=== PATIENT | female | born 1970 | race African-American/Black ===

== ENCOUNTER 2025-04-04 15:27 | Outpatient (CLI) | payer OTHER, SELFPAY ==
--- OUTSIDE RECORDS SUMMARY | 2016-02-02 05:30 | XMS_ITS | Continuity of Care Document ---
Author Organization [facility] Address [address] [place] [address] Phone Care Team Providers Care Kindergartners Helper Name Role Phone Nacho Colindres MD Unavailable Unavailable Allergies, Adverse Reactions, Alerts Substance Reaction Status Criticality No Known Allergies Active No Inform ation Medications Medication Instructions Dosage Effective Dates (start - stop) Status Comments ALEVE (unknown strength) Not Available - Active Procedures Procedure Date RADEX SPI LUMBOSAC 2/3 VIEWS DISABILITY EXAMINATION Advance Directives Directive Yes / No Effective Date File Name No Information Encounters Encounter Description Practice Location Reason(s) For Visit Diagnoses Date Provider Providers Copied on Encounter DISABILITY EXAMINATION [facility] , [address], [place], [address], [place] tel:[phone] [facility] Vazquez I fell and hurt my back (chief complaint) Body mass index (BMI) 29.0-29.9, adultLow back pain Jens Griffith. [address] [place], [place], [id number]. tel:[phone] Family History Family Member Type Diagnosis Age At Onset Mother Problem (finding) hypertension Mother Problem (finding) hypercholester olemia in first degree relative Father Problem (finding) hypertension Sister Problem (finding) renal stone Brother Problem (finding) hypertension Payers Payer name Insurance type Covered democrat ID Authoriza tion(s) No Information Social History Type Description Quantity Date Captured Comments Alcohol Use Details No Caffeine Use Details Unknown Tobacco Use Status Never smoked tobacco 2015 Smoking Status Never smoker Non-Smoking Tobacco Use Details : No Details Available : No Details Available Sex Female Vital Signs Date / Time: Height Weight BMI Pulse Rate Blood Pressure Temperature Respiratory Rate Body Surface Area Head Circumference Head Circ. Percentile Wt./Sukhjinder. Percentile BMI percentile Pulse Ox Inhaled Ox 10:28 AM 61.00 in 71.214 kg (157.00 lbs) 29.6 6 kg/m eter (2) 122/84 mm[Hg] Chief Complaint And Reason For Visit From encounter dated '02/02/2016 10:30'. I fell and hurt my back (chief complaint) Reason For Referral Reason For Referral No Information Plan Of Treatment Date Type Action Status Referral Ordered: RADEX SPI LUMBOSAC 2/3 VIEWS ordered History Of Present Illness Encounter Date Complaint History Of Prese nt Illness I fell and hurt my back Functional Status Date Functional Assessmen t No Information Instructions Date Instruction Additional Infor mation No Information Assessments Type Assessment Date assessment Body mass index (BMI) 29.0-29.9, adult assessment Low back pain Patient Care Teams Name Effective Dates (start - stop) Status Members No Information
--- NOTE | ~2025-04-04 | XR_ITS ---
EXAMINATION: XR hand LT min 3V, 04/04/2025 15:45 CDT HISTORY: osteoarthritis of first digit COMPARISON: No comparisons available. Findings: No acute fracture or malalignment. Moderate degenerative changes of the first metacarpal carpal joint, no erosions are identified Soft tissues unremarkable. Impression: No acute fracture or malalignment. Reviewed, dictated and finalized at location P. Impression: No acute fracture or malalignment.
--- OUTSIDE RECORDS SUMMARY | 2025-04-04 16:58 | XMS_ITS | Encounter Summary ---
Author Organization [facility] Address [address] [place] [address] Care Team Providers Care Sewing Machine Repairer Name Role Phone Li Castro MD Primary Care Provider [phone] Encounter Details Date Type Department Care Team (Late st Contact Info) Description 12/23/2017 Lab Requisition [facility] [employer] [address] [place] [id number] [facility], External Provider [address] [place] [address] Social History Tobacco Use Types Packs/Day Years Used Date Smoking Tobacco: Never Smokeless Tobacco: Never Alcohol Use Standard Drinks/Week Comments No 0 (1 standard drink = 0.6 oz pur e alcohol) Comments No Sex and Gender Information Value Date Recorded Sex Assigned at Not on file 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 Gender Identity Not on file Sexual Orientation Not on file documented as of this encounter Plan of Treatment Not on file documented as of this encounter Procedures Procedure Name Priority Date/Time Associated Diagnosis Comments HEPATITIS B SURFACE AB, QUANT Routine 12/23/2017 12:33 PM CDT VARICELLA ZOSTER IGG Routine 12/23/2017 12:33 PM CDT documented in this encounter Results * HEPATITIS B SURFACE AB, QUANT (12/23/2017 12:33 PM CDT) HEPATITIS B SURF AB,QN 355.8 mlU/mL 12/23/2017 8:52 PM CDT [facility] [employer] [facility] HEPATITIS B SURFACE AB INTERP Reactive See Interp 12/23/2017 8:52 PM CDT [facility] Blood Collection / Unknown 12/23/2017 12:33 PM CDT 12/23/2017 5:25 PM CDT Narrative [facility] - 12/23/2017 8:52 PM CDT Patient has immunity to Hepatitis B virus. This assay is used to determine immune status to Hepatitis B as greater than or equal to 10 mIU/mL as per CDC guidelines (MMWR:vol 55: RR-16, 2006). External Provider [facility] CHEMISTRY ORDERABLES Fin al Result [facility] CLIA# [id number] [address] [place] [address] * VARICELLA ZOSTER IGG (12/23/2017 12:33 PM CDT) VZV IGG Positive 12/25/2017 10:42 AM CDT [facility] Comment: Results suggest response to immunization or prior exposure to the virus. REFERENCE VALUE Vaccinated: Positive (>=1.1 AI) Unvaccinated: Negative (<=0.8 AI) VARICELLA IGG INDEX 5.0 12/25/2017 10:42 AM CDT [facility] Comment: Test Performed by: [facility] [address] [place] [address] Blood Collection / Unknown 12/23/2017 12:33 PM CDT 12/23/2017 5:25 PM CDT External Provider [facility] CHEMISTRY ORDERABLES Fin al Result [facility] documented in this encounter Visit Diagnoses Not on filedocumented in this encounter Care Teams Sewing Machine Repairer Relationship Specialty Start Date End Date Li Castro [place] [address] [address] [id number] PCP - General Family Practice 09/17/21 06/17/22 documented as of this encounter
--- OUTSIDE RECORDS SUMMARY | 2025-04-04 16:59 | XMS_ITS | Clinical Summary ---
Author Organization [facility] [employer] [place] Address [address] [place] [address] Care Team Providers Care Manager Eligibility Name Role Phone Unavailable Primary Care Provider Unavailabl e Allergies Active Allergy Reactions Criticality Noted Date Comments Flzcpjj-Rxu-Eih Reductase Inhibitors Itching Low 09/24/2017 Medications fluticasone (FLONASE) 50 mcg/spray [place], Suspension 2 7 Active montelukast (SINGULAIR) 10 mg tablet 8 Active ERGOCALCIFEROL, VITAMIN D2, (VITAMIN D ORAL) Take by mouth. Active predniSONE (DELTASONE) 10 mg tabletIndication s:Non-seasonal allergic rhinitis, unspecified trigger Take three tablets at one time daily for seven days. 30 Tablet 8 Active fluconazole (DIFLUCAN) 150 mg tabletIndication s:BV (bacterial vaginosis),Oral candidiasis Take one at start of infection. May take one additional tablet in 72 hours if needed.. 2 Tablet 1 8 Active ezetimibe (ZETIA) 10 mg tablet Take 1 Tablet (10 mg) by mouth daily. 90 Tablet 8 Active Active Problems Problem Noted Date Diagnosed Date Hyperlipidemia 09/22/2017 Vitamin D deficiency 09/22/2017 Family History Medical History Relation Name Comments Hypertension Brother No Known Problems Daughter 1 No Known Problems Daughter 2 No Known Problems Daughter 3 No Known Problems Father Cancer Maternal Grandfather Cancer Maternal Grandmother High Cholesterol Mother Hypertension Mother Cancer Paternal Grandfather No Known Problems Sister No Known Problems Son Relation Name Status Comments Brother Alive Daughter 1 Alive Daughter 2 Alive Daughter 3 Alive Father Alive Maternal Grandfather Maternal Grandmother Mother Alive Paternal Grandfather Paternal Grandmother Alive Sister Alive Son Alive Social History Tobacco Use Types Packs/Day Years Used Date Smoking Tobacco: Never Smokeless Tobacco: Never Alcohol Use Standard Drinks/Week Comments No 0 (1 standard drink = 0.6 oz pur e alcohol) Comments No Sex and Gender Information Value Date Recorded Sex Assigned at Not on file 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 Gender Identity Not on file Sexual Orientation Not on file Last Filed Vital Signs Vital Sign Reading Time Taken Comments Blood Pressure 110/70 12/24/2017 1:08 PM CDT Pulse 83 12/24/2017 1:08 PM CDT Temperature 36.4 C (97.5 F) 12/24/2017 1:08 PM CDT Respiratory Rate 16 12/24/2017 1:08 PM CDT Oxygen Saturation 98% 12/24/2017 1:08 PM CDT Inhaled Oxygen Concentration - - Weight 74.8 kg (165 lb) 12/24/2017 1:08 PM CDT Height 157.5 cm (5' 2) 12/24/2017 1:08 PM CDT Body Mass Index 30.18 12/24/2017 1:08 PM CDT Plan of Treatment Health Maintenance Due Date Last Done Comments DTAP/TDAP/TD VACCINES (1 - Tdap) 1988 HEPATITIS B VACCINES (1 of 3 - 19+ 3-dose series) 1988 HPV/Cotest (21-29) 1990 HPV/Cotest (30-65) 1999 COLORECTAL SCREENING 2014 Colorectal Cancer Screening 2014 FIT-DNA Q 3 years 2014 FIT/FOBT Q 1 year 2014 Flex Sig/CT Colonography Q 5 years 2014 BREAST CANCER SCREENING 11/07/2017 11/08/19 17 (Previously completed) ZOSTER VACCINE (1 of 2) 2019 CERVICAL CANCER SCREENING 01/08/2020 PAP SMEAR 01/08/2020 01/07/2017 (Prev iously completed) INFLUENZA VACCINE (#1) 2025
--- OUTSIDE RECORDS SUMMARY | 2025-04-04 16:59 | XMS_ITS | Clinical Summary ---
Author Organization [facility] Address [address] [place] [address] Care Team Providers Care Professor Of Genetics Name Role Phone Keisha Durant MD Primary Care Provider [phone] Source Comments [facility],non-owned Affiliates and Associated Physician Practices is amultiple site organization consisting of ambulatory clinics and hospital sitesin [place], [place], [place] and [place]. This disclosure is being madepursuant to the Care Everywhere program and may not contain all information available regarding this patient. Last updated 18.[facility] Allergies Active Allergy Reactions Criticality Noted Date Comments Hmg-Coa-R Inhibitors Itching Low 09/24/2017 Sulfamethoxazole W-Trimethoprim Unknown 02/2014 Medications * Be aware that medications may not be up to date on this document. Alwaysverify current medications with the patient. atorvastatin (Lipitor) 40 MG tablet Take 1 (one) tablet by mouth once daily 08/11/2023 Active cetirizine (ZyrTEC) 10 MG tablet Take 1 (one) tablet by mouth once daily 07/06/2023 Active lisinopril-hydr oCHLOROthiazide (Prinzide; Zestoretic) 10-12.5 MG tablet Take 1 (one) tablet by mouth once daily 08/11/2023 Active metoprolol tartrate IR (Lopressor) 25 MG tablet Take 1 (one) tablet by mouth 2 times daily 02/20/2023 Active meloxicam (Mobic) 7.5 MG tablet Take 1 (one) tablet by mouth 2 times daily 08/11/2023 Active omeprazole (PriLOSEC) 20 MG capsule Take 1 (one) capsule by mouth 2 times daily 08/09/2023 Active sucralfate (Carafate) 1 GM tablet Take 1 (one) tablet by mouth 4 times daily 07/10/2023 Active estradiol (Vagifem) 10 MCG vaginal tablet Insert 1 (one) tablet into the vagina every Friday & 8 tablet 11 08/21/2023 Active Family History Medical History Relation Name Comments Diabetes; unknown type Maternal Grandfather Diabetes; unknown type Maternal Grandmother High Cholesterol Mother Hypertension Mother Relation Name Status Comments Maternal Grandfather Maternal Grandmother Mother Social History Tobacco Use Types Packs/Day Years Used Date Smoking Tobacco: Never Smokeless Tobacco: Never Tobacco Cessation:Counseling Given: Not Answered Alcohol Use Standard Drinks/Week Comments Never 0 (1 standard drink = 0.6 oz pur e alcohol) Comments No Sex and Gender Information Value Date Recorded Sex Assigned at Not on file 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 Gender Identity Not on file Sexual Orientation Not on file Last Filed Vital Signs Vital Sign Reading Time Taken Comments Blood Pressure 130/84 08/20/2023 10:19 AM CDT Pulse - - Temperature - - Respiratory Rate - - Oxygen Saturation - - Inhaled Oxygen Concentration - - Weight 73.9 kg (163 lb) 08/20/2023 10:19 AM CDT Height 154.9 cm (5' 1) 08/20/2023 10:19 AM CDT Body Mass Index 30.8 08/20/2023 10:19 AM CDT Plan of Treatment Health Maintenance Due Date Last Done Comments COLOGUARD (AGES 45-75) - COL ON CA SCREENING 1969 COLON MONITORING 1969 COLONOSCOPY - COLON CA SCREENING 1969 CT COLONOGRAPHY - COLON CA SCREENING 1969 Colorectal Cancer Screening 1969 FIT - COLON CA SCREENING 1969 FLEX SIG - COLON CA SCREENING 1969 HIV SCREENING 1984 HEPATITIS C SCREENING 07/03/1987 DTAP/TDAP/TD VACCINES (1 - Tdap) 1988 HEPATITIS B VACCINE (1 of 3 - 19+ 3-dose series) 1988 PNEUMOCOCCAL VACCINE 50+ (1 of 1 - PCV) 2019 ZOSTER VACCINE (1 of 2) 2019 MAMMOGRAM 08/24/2020 08/24/2018 SCREENING FOR DIABETES 08/20/2023 DEPRESSION SCREENING 06/09/2024 COVID-19 VACCINE (2024-2 6 season) 2025 04/27/2021, 10/20/2020, 06/30/2020 INFLUENZA VACCINE (#1) 2025 2, 02/07/2021 HIB VACCINE Aged Out No longer eligi ble based on patient's age to complete this topic HPV VACCINE Aged Out No longer eligi ble based on patient's age to complete this topic MENINGOCOCCAL (Group B) VACCINE SHARED DECISION-MAKING Aged Out No longer eligible based on patient's age to complete this topic MENINGOCOCCAL GROUPS A/C/Y/W VACCINE Aged Out No longer eligible b ased on patient's age to complete this topic Insurance MEDICAID - [place] Care Teams Professor Of Genetics Relationship Specialty Start Date End Date Keisha Durant MD [address] [place] [id number] PCP - General Internal Medicine 08/20/23
--- OUTSIDE RECORDS SUMMARY | 2025-04-04 16:59 | XMS_ITS | Data Portability ---
Author Organization [facility], [facility] Address [address] [place] [address] Care Team Providers Care Office Associate Name Role Phone SYLVIA MENARD Primary Care Provider [facility] Fingerprinter Assessment No assessment recorded. Plan of Treatment Reminders Order Date Submit Date Provider Last Modified By Organization Details Last Modified Time Details Appointments None recorded. Lab urinalysis, dipstick 2024 025 [facility] [place], [address] [place], [address], 5 16:40:06 culture, urine 2024 025 DONIPHAN [facility], [address] [facility], [place], [address], 5 00:37:25 rapid flu (A+B) 2024 025 [facility] [place], [address] [place], [address], 5 16:39:20 SARS CoV 2 (COVID-19) Ag, QL, IA, upper respiratory specimen 2024 025 [facility], [address] [place], [address], 16:39:32 Referral None recorded. Procedures None recorded. Surgeries None recorded. Imaging US, breast, unilateral - quarter size lump noted 9 o'clock, tender, non-moveabl e. 2024 025 [facility] [address] [place], [address], 5 09:40:03 MAMMO, diagnostic, digital, unilateral - quarter size lump noted 9 o'clock, tender, non-moveabl e. 2024 025 [facility] ([facility]), [address] [place], [address], 5 09:39:49 Medication Orders nitrofurant oin monohydrate /macrocryst als 100 mg capsule 2024 [facility] [address], [address], 05:01:09 Zithromax Z-Cory 250 mg tablet 2024 [facility] [address], [address], 18:36:34 estradiol 0.05 mg/24 hr semiweekly transdermal patch 2024 [facility] [address], [address], 5 13:44:23 estradiol 10 mcg vaginal tablet 2024 025 [facility] [address], [address], 13:44:23 Patient TargetsNo targets recorded. Patient InstructionsNo instructions recorded. Reason for Referral None Reported. Results Created Date Observation Date Name Description Value Unit Range Abnormal Flag Note LastModifiedBy Organization Detail LastModifiedTime 11/04/19 25 11/05/2024 SURES WAB(R ) ADVAN DREW VAGIN ITIS PLUS, TMA sureswab(R) adv bacterial vaginosis (bv), tma NEGATI VE negati ve normal Not Available [address], [address], 11/05/2024 20:12:56 11/04/19 25 11/05/2024 SURES WAB(R ) ADVAN DREW VAGIN ITIS PLUS, TMA kassie species NOT DETECT ED not detect ed normal Not Available [address], [address], 11/05/2024 20:12:56 11/04/19 25 11/05/2024 SURES WAB(R ) ADVAN DREW VAGIN ITIS PLUS, TMA kassie glabrata NOT DETECT ED not detect ed normal [place] da speci es C. albic ans, C. tropi calis , C. parap tor is, and/o r C. dubli niens is can be detec doron, but not diffe renti ated, in the [place] da spp. resul t. Not Available [address], [address], 11/05/2024 20:12:56 11/04/19 25 11/05/2024 SURES WAB(R ) ADVAN DREW VAGIN ITIS PLUS, TMA trichomonas vaginalis (TV), tma NOT DETECT ED not detect ed normal Not Available [address], [address], 11/05/2024 20:12:56 11/04/19 25 11/05/2024 SURES WAB(R ) ADVAN DREW VAGIN ITIS PLUS, TMA chlamydia trachomatis RNA, tma, urogenital NOT DETECT ED not detect ed normal Not Available [facility] [address], [address], 11/05/2024 20:12:56 11/04/19 25 11/05/2024 SURES WAKavitha(R ) ADVAN DREW VAGIN ITIS PLUS, TMA neisseria gonorrhoeae RNA, tma, urogenital NOT DETECT ED not detect ed normal For addit ional infor rohan gr refer to https ://ed ucati on.qu estBarnacle. com/f aq/FA Q154 (This link is being provi ded for infor daniella alarcon/ alfredo rosado purpo ses only. ) Not Available [facility] [address] [place], [address], 11/05/2024 20:12:56 11/04/19 25 11/05/2024 CULTU RE, URINE , ROUTI NE culture, urine, routine SEE NOTE CULTU RE, URINE , ROUTI NE Micro Numbe r: [id number] Test Statu s: Final Speci men Sourc e: Urine Speci men Quali ty: Adequ ate Resul t: No Growt h Not Available [facility] [address] [place], [address], 11/05/2024 20:12:56 11/04/19 25 11/03/2024 urina lysis , dipst ick Leukocytes Negati ve Not Available [facility] [address], [address], 11/03/2024 18:11:09 11/04/19 25 11/03/2024 urina lysis , dipst ick Nitrite negati ve Not Available [facility] [address], [address], 11/03/2024 18:11:09 11/04/19 25 11/03/2024 urina lysis , dipst ick Urobilinogen .2 Not Available [facility] [address], [address], 11/03/2024 18:11:09 11/04/1911/03/2024 urina lysis , dipst ick Protein 100 Not Available [address], [place], [address], 11/03/2024 18:11:09 11/04/1911/03/2024 urina lysis , dipst ick pH 7.0 Not Available [address], [place], [address], 11/03/2024 18:11:09 11/04/1911/03/2024 urina lysis , dipst ick Blood Negati ve Not Available [address], [place], [address], 11/03/2024 18:11:09 11/04/1911/03/2024 urina lysis , dipst ick Specific [place] 1.030 Not Available [address], [place], [address], 11/03/2024 18:11:09 11/04/1911/03/2024 urina lysis , dipst ick Ketone Small Not Available [address], [place], [address], 11/03/2024 18:11:09 11/04/1911/03/2024 urina lysis , dipst ick Bilirubin Negati ve Not Available [address], [place], [address], 11/03/2024 18:11:09 11/04/1911/03/2024 urina lysis , dipst ick Glucose Negati ve Not Available [facility] [address], [place], [address], 11/03/2024 18:11:09 11/04/19 25 11/03/2024 urina lysis , dipst ick Appearance Slight ly Cloudy Not Available [facility] [address], [place], [address], 11/03/2024 18:11:09 11/04/19 25 11/03/2024 urina lysis , dipst ick Color Dark Yellow Not Available [facility] [address], [place], [address], 11/03/2024 18:11:09 11/27/19 25 11/27/2024 SURES WAB(R ) ADVAN DREW VAGIN ITIS, TMA sureswab(R) adv bacterial vaginosis (bv), tma NEGATI VE negati ve normal Not Available [address] [address] [place], [address], 11/27/2024 12:56:06 11/27/19 25 11/27/2024 SURES WAB(R ) ADVAN DREW VAGIN ITIS, TMA kassie species NOT DETECT ED not detect ed normal Not Available [address] [address] [place], [address], 11/27/2024 12:56:06 11/27/19 25 11/27/2024 SURES WAB(R ) ADVAN DREW VAGIN ITIS, TMA kassie glabrata NOT DETECT ED not detect ed normal [place] da speci es C. albic ans, C. tropi calis , C. parap tor is, and/o r C. dubli niens is can be detec doron, but not diffe renti ated, in the [place] da spp. resul t. Not Available [facility] [address] [address] [place], [address], 11/27/2024 12:56:06 11/27/19 25 11/27/2024 SURES WAB(R ) ADVAN DREW VAGIN ITIS, TMA trichomonas vaginalis (TV), tma NOT DETECT ED not detect ed normal Not Available [facility] [address] [place], [address], 11/27/2024 12:56:06 01/19/20 25 01/19/2025 CULTU RE, URINE , ROUTI NE culture, urine, routine SEE NOTE CULTU RE, URINE , ROUTI NE Micro Numbe r: [id number] Test Statu s: Final Speci men Sourc e: Urine Speci men Quali ty: Adequ ate Resul t: No Growt h Not Available [facility] [address] [place], [address], 01/20/2025 00:37:25 02/02/20 25 02/01/2025 urina lysis , dipst ick Leukocytes Trace Not Available [facility] [address], [address], 01/18/2025 18:23:08 02/02/20 25 02/01/2025 urina lysis , dipst ick Nitrite negati ve Not Available [facility] [address], [address], 01/18/2025 18:23:08 02/02/20 25 02/01/2025 urina lysis , dipst ick Urobilinogen .2 Not Available [facility] [address], [address], 01/18/2025 18:23:08 02/02/20 25 02/01/2025 urina lysis , dipst ick Protein Trace Not Available [facility] [address], [address], 01/18/2025 18:23:08 02/02/20 25 02/01/2025 urina lysis , dipst ick pH 6.0 Not Available [address], [place], [address], 01/18/2025 18:23:08 02/02/20 25 02/01/2025 urina lysis , dipst ick Blood Negati ve Not Available [address], [place], [address], 01/18/2025 18:23:08 02/02/20 25 02/01/2025 urina lysis , dipst ick Specific [place] 1.025 Not Available [address], [place], [address], 01/18/2025 18:23:08 02/02/20 25 02/01/2025 urina lysis , dipst ick Ketone Negati ve Not Available [address], [place], [address], 01/18/2025 18:23:08 02/02/20 25 02/01/2025 urina lysis , dipst ick Bilirubin Negati ve Not Available [address], [place], [address], 01/18/2025 18:23:08 02/02/20 25 02/01/2025 urina lysis , dipst ick Glucose Negati ve Not Available [address], [place], [address], 01/18/2025 18:23:08 02/02/20 25 02/01/2025 urina lysis , dipst ick Appearance Cloudy Not Available [facility] [address], [place], [address], 01/18/2025 18:23:08 02/02/20 25 02/01/2025 urina lysis , dipst ick Color Yellow Not Available [facility] [place] [address] [place] [address], [place], [address], 01/18/2025 18:23:08 02/02/20 25 02/01/2025 SARS CoV 2 (COVI D-19) Ag, QL, IA, upper respi rator y speci men Covid Rapid negati ve Not Available [facility] [address], [place], [address], 01/18/2025 18:20:57 02/02/20 25 02/01/2025 rapid flu (A+B) Flu negati ve Not Available [facility] [address], [place], [address], 01/18/2025 18:20:48 12/24/19 25 12/21/2024 US, silvana t, unila teral No observ ation record ed. [email or web address] [facility] ([facility]) [address] [facility], [place], [address], 12/24/2024 14:09:33 12/24/19 25 12/17/2024 MAMMO , diagn ostic , digit al, unila teral No observ ation record ed. [email or web address] [facility] ([facility]) [address] [facility] [place], [address], 12/24/2024 14:09:33 Result Notes None recorded. Problems Name Problem SNOMED Code Status Onset Date Resolution Date Notes Provider Name and Address Organization Details Recorded Time Total hysterec veronica Active Shana lamas, [facility] 3 18:39:22 Malaise and fatigue 735469448 Completed 201201/01/2019 Fatigue; Location : None Progress : Stable Added By: Omar Alaniz Add to Current Problems : NO ProblemS tatus: Resolve Fatigue; Progress : Stable Added By: Gabby Montanez Add to Current Problems : NO ProblemS tatus: Resolve Not Available [facility] 2 21:20:15 Vaginiti s and vulvovag initis Completed 201312/31/2013 Vagintiu s Unspecif ied; Location : None Progress : Stable Added By: Lissy Garcia Add to Current Problems : NO ProblemS tatus: Resolve Not Available [facility] 2 21:20:18 Candidal vulvovag initis [id number] Completed 201312/31/2013 Vaginal yeast infectio n; Location : None Progress : Stable Added By: Nakia Samano Add to Current Problems : NO ProblemS tatus: Resolve Yeast vaginiti s; Location : None Progress : Stable Added By: Charmaine Adkins Add to Current Problems : NO ProblemS tatus: Resolve; Start Date : 12/29/19 13 Not Available [facility] 2 21:20:18 Abscess of vulva 90777020 Completed 201312/31/2013 Abscess of vulva; Progress : Stable Added By: Chikis Garner Add to Current Problems : NO ProblemS tatus: Resolve Not Available [facility] 2 21:20:16 Abdomina l pain 93016144 Completed 201306/12/2014 Abdomina l pain, unspecif ied; Location : None Progress : Stable Added By: Lissy Garcia Add to Current Problems : NO ProblemS tatus: Resolve Not Available [facility] 2 21:20:17 Lymphade nopathy 04730440 Completed 201306/12/2014 Enlarged lymph nodes; Progress : Stable Added By: Lissy Garcia Add to Current Problems : NO ProblemS tatus: Resolve Not Available [facility] 2 21:20:15 Vaginola bial hernia Completed 201306/26/2020 Other specifie d noninfla mmatory disorder s of vagina; Progress : Stable Added By: Omar Alaniz Add to Current Problems : NO ProblemS tatus: Resolve Vaginal Discharg e; Location : None Progress : Stable Added By: Saniya Singer Add to Current Problems : YES ProblemS tatus: Current Not Available [facility] 2 21:20:18 Finding of general energy 940778344 Completed 201412/21/2019 Fatigue; Location : None Progress : Stable Added By: Gabby Montanez Add to Current Problems : YES ProblemS tatus: Current Other fatigue; Progress : Stable Added By: Gabby Montanez Add to Current Problems : NO ProblemS tatus: Resolve Not Available [facility] 2 21:20:18 Urinary incontin ence 620523621 Completed 201405/19/2015 Incontin ence of urine, other; Location : None Progress : Stable Added By: Ngozi Turner Add to Current Problems : YES ProblemS tatus: Resolve Not Available [facility] 2 21:20:19 Micturit ion finding Completed 201405/19/2015 Other specifie d urinary incontin ence; Progress : Stable Added By: Ngozi Turner Add to Current Problems : NO ProblemS tatus: Resolve Not Available [facility] 2 21:20:16 Breast neoplasm screenin g status 099411303 Completed 201405/19/2015 Encounte r for other screenin g for malignan t neoplasm of breast; Progress : Stable Added By: Abi Kumar Add to Current Problems : NO ProblemS tatus: Resolve Not Available [facility] 2 21:20:19 Leukorrh ea 153842906 Completed 201601/28/2017 Vaginal Discharg e; Progress : Stable Added By: Melinda Mahoney Add to Current Problems : NO ProblemS tatus: Resolve Vaginal Discharg e; Location : None Progress : Stable Added By: Frida Richter Add to Current Problems : YES ProblemS tatus: Resolve; Start Date : 09/29/19 14 Vagin al Discharg e; Location : None Progress : Stable Added By: Kade, Shania Add to Current Problems : NO ProblemS tatus: Resolve; Start Date : 12/29/19 13 Not Available [facility] 2 21:20:15 Breast neoplasm screenin g NOS Completed 201601/28/2017 Screenin g mammogra m - other; Location : None Severity : Moderate Progress : Stable Added By: Venita Andrews Add to Current Problems : YES ProblemS tatus: Resolve Screenin g for breast cancer, unspecif ied; Location : None Severity : Moderate Progress : Stable Added By: Abi Kumar Add to Current Problems : YES ProblemS tatus: Resolve; Start Date : 03/20/20 15 Nithin coello mammogra m - other; Severity : Moderate Progress : Stable Added By: Lissy Garcia Add to Current Problems : NO ProblemS tatus: Resolve; Start Date : 03/02/20 13 Not Available [facility] 1 19:55:20 Female urinary stress incontin ence 70582151 Completed 201601/01/2019 Stress incontin ence; Location : None Progress : Stable Added By: Melinda Mahoney Add to Current Problems : YES ProblemS tatus: Current Stress incontin ence; Progress : Stable Added By: Melinda Mahoney Add to Current Problems : NO ProblemS tatus: Resolve Not Available [facility] 2 21:20:17 Screenin g mammogra phy Completed 201601/28/2017 Screenin g mammogra m - other; Location : None Progress : Stable Added By: Lissy Garcia Add to Current Problems : NO ProblemS tatus: Resolve; Start Date : 04/13/20 14 Nithin coello mammogra m - other; Location : None Progress : Stable Added By: Lissy Garcia Add to Current Problems : NO ProblemS tatus: Resolve; Start Date : 03/02/20 13 Encou nter for screenin g mammogra m for malignan t neoplasm of breast; Progress : Stable Added By: Venita Andrews Add to Current Problems : NO ProblemS tatus: Resolve Screenin g mammogra m - other; Location : None Progress : Stable Added By: Venita Andrews Add to Current Problems : YES ProblemS tatus: Resolve Not Available [facility] 2 21:20:19 History of recurren t cystitis 355089745 Completed 201708/29/2021 History of recurren t UTI's; Location : None Progress : Stable Added By: Saniya Singer Add to Current Problems : YES ProblemS tatus: Current Idania lamas, [facility] 2 14:31:50 Cyst of ovary 32446674 Completed 201712/21/2019 Other ovarian cyst; Progress : Stable Added By: Mary Kate Lundberg Add to Current Problems : NO ProblemS tatus: Resolve Other ovarian cyst; Location : None Progress : Stable Added By: Mary Kate Lundberg Add to Current Problems : YES ProblemS tatus: Current Unspecif ied ovarian cysts; Progress : Stable Added By: Mary Kate Lundberg Add to Current Problems : NO ProblemS tatus: Resolve Other ovarian cysts; Progress : Stable Added By: Mary Kate Lundberg Add to Current Problems : NO ProblemS tatus: Resolve Not Available [facility] 2 21:20:14 Kassie infectio n of genital region Completed 201712/21/2019 Candidia sis of vulva and vagina; Progress : Stable Added By: Omar Alaniz Add to Current Problems : NO ProblemS tatus: Resolve Not Available [facility] 2 21:20:15 Candidia sis of vagina 12706510 Completed 201704/11/2018 Candidia sis, of vulva and vagina; Location : None Progress : Stable Added By: Omar Alaniz Add to Current Problems : YES ProblemS tatus: Resolve Not Available [facility] 2 21:20:17 Vulvovag initis 23881286 Completed 201712/21/2019 Vagintiu s Unspecif ied; Location : None Progress : Stable Added By: Lissy Garcia Add to Current Problems : YES ProblemS tatus: Resolve; Start Date : 04/13/20 14 Vagin tius Unspecif ied; Location : None Progress : Stable Added By: Saniya Singer Add to Current Problems : YES ProblemS tatus: Current Other specifie d inflamma tion of vagina and vulva; Progress : Stable Added By: Saniya Singer Add to Current Problems : NO ProblemS tatus: Resolve Not Available [facility] 2 21:20:16 Syphilis test finding 319168819 Completed 201708/29/2021 Encounte r for screenin g for infectio ns with a predomin antly sexual mode of transmis enrico; Severity : Moderate Progress : Stable Added By: Bernie Aranda Add to Current Problems : YES ProblemS tatus: Current Idania lamas, [facility] 2 14:31:56 Venereal disease screenin g Completed 201705/17/2018 Screenin g for STDs; Location : None Progress : Stable Added By: Allie Tatum Add to Current Problems : YES ProblemS tatus: Resolve Not Available [facility] 2 21:20:14 Acute vaginiti s 73952457 Completed 201808/29/2021 Acute vaginiti s; Severity : Moderate Progress : Stable Added By: Lynne Corrales Add to Current Problems : YES ProblemS tatus: Current Idania lamas, [facility] 2 14:31:48 Pelvic and perineal pain 586662351 Completed 201808/29/2021 Pelvic and perineal pain; Severity : Moderate Progress : Stable Added By: Cristóbal Sanz Add to Current Problems : YES ProblemS tatus: Current Idania lamas, [facility] 2 14:31:53 Screenin g for malignan t neoplasm of cervix Completed 201812/21/2019 Encounte r for screenin g for malignan t neoplasm of cervix; Progress : Stable Added By: Nubia Worrell Add to Current Problems : NO ProblemS tatus: Resolve Not Available [facility] 2 21:20:15 Sampling of vagina for Papanico laou smear Completed 201806/26/2020 Encounte r for gynecolo gical examinat ion (general ) (routine ) without abnormal findings ; Progress : Stable Added By: Mary Kate Lundberg Add to Current Problems : NO ProblemS tatus: Resolve Not Available [facility] 2 21:20:[address] Concept Completed 201812/21/2019 Encounte r for screenin g for malignan t neoplasm of vagina; Progress : Stable Added By: Nubia Worrell Add to Current Problems : NO ProblemS tatus: Resolve Not Available [facility] 2 21:20:14 Menopaus e present 160092987 Completed 201808/29/2021 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; Severity : Moderate Progress : Stable Added By: Randi Chacon Add to Current Problems : YES ProblemS tatus: Current Idania lamas, [facility] 2 14:31:52 Dysuria 41663435 Completed 201812/21/2019 Dysuria; Progress : Stable Added By: Idania Charles Add to Current Problems : NO ProblemS tatus: Resolve Not Available [facility] 2 21:20:18 Disorder due to infectio n Completed 201912/21/2019 Other sites of candidia sis; Progress : Stable Added By: Faith Funez i Add to Current Problems : NO ProblemS tatus: Resolve Not Available [facility] 2 21:20:13 Genuine stress incontin ence 60495886 Completed 201906/26/2020 Stress incontin ence (female) (male); Progress : Stable Added By: Melinda Mahoney Add to Current Problems : NO ProblemS tatus: Resolve Not Available [facility] 2 21:20:15 Menopaus al symptom 32928260 Active 2022 [facility] [address] [place], [address] , [facility] 3 19:38:08 Increase d frequenc y of urinatio n 894785099 Active 2022 [facility] [address] [place], [address] , [facility] 3 12:17:52 Problem Notes None recorded. Procedures Surgical History Date Name Laterality Status Provider Name and Address Organization Details Recorded Time 11/20/19 25 perineorrhaphy completed [facility] 11/23/2024 12:08:18 08/12/19 25 Most Recent Mammogram [facility] 09/07/2024 12:52:19 07/27/19 25 perineoplasty completed [facility] 11/23/2024 12:11:41 07/27/19 25 cystoscopy completed [facility] 11/23/2024 12:12:04 06/09/19 23 Date of Last Colonoscopy completed Idania Brantley [facility] 02/20/2023 11:43:12 total hysterectomy completed Melissa Singh [facility] 01/11/2022 09:07:09 Imaging Results None recorded. Procedure Notes None recorded. Medical Equipment None Reported. Allergies Allergen ID Allergen Name Allergen Category Reaction Reaction Severity Criticality Documentation Date Start Date Code Code System Note Provider Name and Address Organization Details Recorded Time 634404 Bactrim medicatio n Not available Not available Not available 03/30/20212013 04291 9 RxNorm Sever ity: Moder ate; America Lundberg MD [address] [place] [address], [address] [place] [address] IV 5 11:45:00 868069 sulfameth oxazole / trimethop rim medicatio n Not available Not available Not available 06/28/20242013 56449 RxNorm unrec ogniz ed react ion (text : Unkno wn, code: [id number] [id number]) (from [facility]) Onel lamas, [facility] IV 5 10:41:16 505719 Product containin g 3-hydroxy -3-methyl glutaryl- coenzyme A reductase inhibitor (product) medicatio n itching Not available low 03/18/20252017 05976 009 SNOMED Not Available [facility] - External Data Service - prod 5 14:42:13 Medications Name Sig Start Date Stop Date Status Note LastModified by Organization Details LastModified Time amoxicill in 500 mg capsule TAKE ONE CAPSULE BY MOUTH EVERY 8 HOURS 03/04 completed Not Available Not Available Not Available fluconazo le 100 mg tablet TAKE 1 TABLET BY MOUTH EVERY DAY FOR 5 DAYS 09/07 completed Not Available Not Available Not Available atorvasta tin 40 mg tablet TAKE 1 TABLET BY MOUTH EVERY DAY active Not Available Not Available No t Available terconazo le 0.4 % vaginal cream 1 applicat or vaginall y twice weekly at [facility] for 6 wks, may apply small amount external ly as well; Start after completi on of oral fluconaz ole 12/02 completed Terconaz ole 0.8% Vaginal Cream RxNorm: [id number] Allow Substitu tion: True Refill Denied: No Not Available Not Available Not Available neomycin- polymyxin -hydrocor t 3.5 mg/mL-10, 000 unit/mL-1 % ear solution INSTILL 2 DROPS TO BOTH EARS 3 TIMES A DAY FOR 10 DAYS 09/23 completed Not Available Not Available Not Available nystatin 100,000 unit/mL oral suspensio n SWISH AND SPIT 5 ML BY MOUTH 3 TIMES DAILY NEEDED active Not Available Not Available No t Available prednison e 10 mg tablet TAKE 4 TABLETS ON DAYS 1-2, 3 TABLETS ON DAYS 3-4, 2 TABLETS ON DAYS 5-6 AND 1 TABLET ON DAY 7. 08/29 completed Not Available Not Available Not Available atorvasta tin 20 mg tablet TAKE 1 TABLET BY MOUTH EVERY DAY active Not Available Not Available No t Available tizanidin e 2 mg tablet TAKE ONE Tablet BY MOUTH ONCE DAILY NEEDED 06/16 completed Not Available Not Available Not Available clindamyc in HCl 300 mg capsule TAKE 1 CAPSULE BY MOUTH 3 TIMES A DAY 03/04 completed Not Available Not Available Not Available cetirizin e 10 mg tablet TAKE 1 TABLET BY MOUTH EVERY DAY NEEDED FOR ALLERGY active Not Available Not Available No t Available atorvasta tin 10 mg tablet take 1 tablet (10 mg) by oral route once daily 08/29 completed atorvast atin 10 mg oral tablet RxNorm: 884047 Allow Substitu tion: False Refill Denied: No Refill DateOccu rred: 11/16/19 Edited by: Faith Felton ) on 06/09/20 20 Stopped by: treasure reynolds(Faith Harvey ) on Not Available Not Available Not Available ibuprofen 800 mg tablet TAKE ONE TABLET BY MOUTH THREE TIMES DAILY (MAX DOSE FOUR TIMES A DAY DONT EXCEED BEYOND THAT) 03/04 completed Not Available Not Available Not Available ofloxacin 0.3 % eye drops 05/04 completed Not Available Not Available Not Available fluconazo le 150 mg tablet TAKE 1 TABLET BY MOUTH EVERY 72 HOURS active Not Available Not Available No t Available ampicilli n 500 mg capsule 1 p.o. bid for seven (7) days 07/16 completed Ampicill in 500mg Capsules RxNorm: [id number] Allow Substitu tion: True Refill Denied: No Not Available Not Available Not Available hydrocodo ne 5 mg-acetam inophen 325 mg tablet TAKE 1 TABLET BY MOUTH EVERY 4 HOURS NEEDED FOR PAIN 08/10 completed Not Available Not Available Not Available sucralfat e 1 gram tablet TAKE 1 TABLET BY MOUTH THREE TIMES A DAY active Not Available Not Available No t Available phenazopy ridine 200 mg tablet TAKE ONE Tablet BY MOUTH EVERY EIGHT HOURS FOR TWO ds 06/16 completed Not Available Not Available Not Available metronida zole 0.75 % (37.5 mg/5 gram) vaginal gel insert 1 applicat orful (37.5 mg) by vaginal route at night twice a week for 16 weeks 12/30 completed Not Available Not Available Not Available ondansetr on HCl 4 mg tablet TAKE ONE TABLET BY MOUTH THREE TIMES DAILY NEEDED 12/30 completed Not Available Not Available Not Available prednison e 20 mg tablet TAKE 1 TABLET BY MOUTH EVERY DAY FOR 5 DAYS 11/18 completed Not Available Not Available Not Available terconazo le 0.8 % vaginal cream 1 applicat or vaginall y twice weekly at HS for 6 wks, may apply small amount external ly as well; Start after completi on of oral fluconaz ole 01/01 completed Terconaz ole 0.8% Vaginal Cream RxNorm: [id number] Allow Substitu tion: True Refill Denied: No Not Available Not Available Not Available metronida zole 250 mg tablet TAKE 1 TABLET BY MOUTH THREE TIMES DAILY FOR 5 DAYS 03/04 completed Not Available Not Available Not Available Zithromax Z-Cory 250 mg tablet TAKE 2 TABLETS (500 MG) BY ORAL ROUTE ONCE DAILY FOR 1 DAY THEN 1 TABLET (250 MG) BY ORAL ROUTE ONCE DAILY FOR 4 DAYS 2024 active Not Available Not Available Not Avai lable clindamyc in HCl 150 mg capsule 01/29 completed Not Available Not Available Not Available itraconaz ole 10 mg/mL oral solution Take 200 mg every day by oral route as directed for 14 days. 03/17 completed Not Available Not Available Not Available sulindac 150 mg tablet 03/17 completed Not Available Not Available Not Available metronida zole 500 mg tablet Take 1 tablet every 12 hours by oral route for 7 days. 02/12 completed Not Available Not Available Not Available lidocaine HCl 2 % mucosal jelly Take 1 applicat ion every 12 hours by mucous route as needed for 5 days. 11/29 completed Not Available Not Available Not Available estradiol 0.05 mg/24 hr semiweekl y transderm al patch APPLY 1 PATCH TO SKIN TWICE A WEEK FOR HOT FLASHES. active Not Available Not Available No t Available ciproflox acin 500 mg tablet 05/04 completed Not Available Not Available Not Available sulfameth oxazole 800 mg-trimet hoprim 160 mg tablet TAKE ONE Tablet BY MOUTH EVERY 12 HOURS FOR 7 DAYS 06/16 completed Not Available Not Available Not Available omeprazol e 40 mg capsule,d elayed release TAKE 1 CAPSULE BY MOUTH EVERY DAY active Not Available Not Available No t Available tramadol 50 mg tablet TAKE 1 TABLET (50 MG TOTAL) BY MOUTH EVERY 6 HOURS NEEDED FOR ACUTE PAIN < 7 DAY SUPPLY 12/15 completed Not Available Not Available Not Available amoxicill in 500 mg tablet TAKE 1 TABLET BY MOUTH EVERY 8 HOURS FOR 7 DAYS 11/18 completed Not Available Not Available Not Available nystatin- triamcino lone 100,000 unit/gram -0.1 % topical ointment Apply thin film to affected area bid 10/14 completed Nystatin /Triamci nolone 100,000U /1gm/0.1 % Topical Ointment RxNorm: [id number] Allow Substitu tion: True Refill Denied: No Not Available Not Available Not Available meloxicam 7.5 mg tablet TAKE ONE TABLET BY MOUTH TWICE DAILY NEEDED FOR 90 DAYS 09/23 completed Not Available Not Available Not Available oxycodone -acetamin ophen 5 mg-325 mg tablet TAKE 1 TABLET BY MOUTH EVERY 4-6 HOURS NEEDED FOR PAIN 03/04 completed Not Available Not Available Not Available amoxicill in 875 mg tablet TAKE 1 TABLET BY MOUTH TWICE A DAY 03/04 completed Not Available Not Available Not Available famotidin e 20 mg tablet 08/29 completed Not Available Not Available Not Available triamcino lone acetonide 0.025 % topical cream Apply thin film to affected area bid 02/13 completed Triamcin olone Acetonid e 0.025% Cream RxNorm: [id number] Allow Substitu tion: True Refill Denied: No Not Available Not Available Not Available ciproflox acin 0.3 % eye drops PLACE 1 DROP INTO AFFECTED EAR TWICE DAILY FOR 10 DAYS 08/10 completed Not Available Not Available Not Available benzonata te 100 mg capsule TAKE ONE CAPSULE BY MOUTH THREE TIMES DAILY NEEDED FOR cough 09/23 completed Not Available Not Available Not Available erythromy cassandra 5 mg/gram (0.5 %) eye ointment 08/29 completed Not Available Not Available Not Available venlafaxi ne 37.5 mg tablet TAKE 1 TABLET (37.5 MG) BY MOUTH ONCE A DAY FOR ONE WEEK THEN INCREASE TO TWO PILLS DAILY 03/04 completed Not Available Not Available Not Available ferrous sulfate 325 mg (65 mg iron) tablet TAKE ONE TABLET BY MOUTH ONCE DAILY FOR 90 DAYS 11/03 completed Not Available Not Available Not Available nystatin 100,000 unit/gram topical cream apply to the affected area(s) by topical route 2 times per day x 7 days 11/15 completed nystatin 100,000 unit/gra m Topical Cream RxNorm: [id number] Allow Substitu tion: True Refill Denied: No Edited by: Faith Felton ) on 11/16/19 Stopped by: treasure reynolds(Faith Harvey ) on 11/16/19 20 Not Available Not Available Not Available prednison e 50 mg tablet 10/28 completed Not Available Not Available Not Available indometha cassandra 25 mg capsule TAKE 1 CAPSULE BY MOUTH THREE TIMES A DAY NEEDED FOR 90 DAYS 12/30 completed Not Available Not Available Not Available sertralin e 25 mg tablet TAKE 1 TABLET BY MOUTH EVERY DAY active Not Available Not Available No t Available omeprazol e 20 mg capsule,d elayed release TAKE ONE CAPSULE BY MOUTH TWICE DAILY FOR 90 DAYS 12/30 completed Not Available Not Available Not Available monteluka st 10 mg tablet TAKE 1 TABLET BY MOUTH EVERY DAY active Not Available Not Available No t Available acetamino phen 300 mg-codein e 60 mg tablet TAKE 1 TABLET BY MOUTH EVERY 4-6 HOURS NEEDED FOR PAIN 03/04 completed Not Available Not Available Not Available diclofena c sodium 50 mg tablet,de layed release TAKE 1 TABLET BY MOUTH EVERY DAY 02/20 completed Not Available Not Available Not Available ergocalci ferol (vitamin D2) 1,250 mcg (50,000 unit) capsule TAKE ONE CAPSULE BY MOUTH EVERY 15 DAYS active Not Available Not Available No t Available nystatin 100,000 unit/gram topical powder apply to the affected area(s) by topical route 2 times per day 11/29 completed nystatin 100,000 unit/gra m Topical Powder RxNorm: [id number] Allow Substitu tion: True Refill Denied: No Edited by: Tatyana Hamm ) on 11/30/19 Stopped by: Tatyana Hamm ) on 11/30/19 21 Not Available Not Available Not Available diazepam 10 mg tablet TAKE 1 TABLET BY MOUTH HALF AN HOUR BEFORE APPOINTM ENT. *MUST HAVE A CAR AUDIO INSTALLER* 03/04 completed Not Available Not Available Not Available epinephri ne 0.3 mg/0.3 mL injection , auto-inje ctor 08/29 completed Not Available Not Available Not Available lisinopri l 10 mg-hydroc hlorothia zide 12.5 mg tablet TAKE 1 TABLET BY MOUTH EVERY DAY active Not Available Not Available No t Available levofloxa cassandra 500 mg tablet TAKE ONE TABLET BY MOUTH ONCE DAILY FOR TEN DAYS 02/20 completed Not Available Not Available Not Available estradiol 0.01% (0.1 mg/gram) vaginal cream INSERT 1 GRAM VAGINALL Y TWICE A WEEK active Not Available Not Available No t Available methylpre dnisolone 4 mg tablets in a dose pack TAKE 6 TABLETS ON DAY 1 DIRECTED ON PACKAGE AND DECREASE BY 1 TAB EACH DAY FOR A TOTAL OF 6 DAYS active Not Available Not Available No t Available albuterol sulfate HFA 90 mcg/actua tion aerosol inhaler INHALE 2 PUFFS BY MOUTH 4 TIMES A DAY NEEDED 09/23 completed Not Available Not Available Not Available estradiol 0.0375 mg/24 hr semiweekl y transderm al patch APPLY 1 PATCH BY TRANSDER MAL ROUTE TWICE WEEKLY active Not Available Not Available No t Available ondansetr on 4 mg disintegr ating tablet TAKE 1 TABLET BY MOUTH EVERY 8 HOURS NEEDED FOR NAUSEA AND VOMITING active Not Available Not Available No t Available cefdinir 300 mg capsule TAKE 1 CAPSULE BY MOUTH TWICE A DAY FOR 10 DAYS 08/10 completed Not Available Not Available Not Available fluticaso ne propionat e 50 mcg/actua tion nasal spray,[facility]ley pension PLACE 1 SPRAY INTO EACH NOSTRIL TWICE DAILY 11/03 completed Not Available Not Available Not Available Diflucan 200 mg tablet take 1 tablet (200 mg) by oral route once daily after completi ng antbioti c 08/10 completed Diflucan 200 mg oral tablet RxNorm: [id number] Allow Substitu tion: True Refill Denied: No Edited by: Cydney Espinosa ) on 08/11/19 Stopped by: Cydney Espinosa ) on 08/11/19 21 Not Available Not Available Not Available dicyclomi ne 10 mg capsule TAKE 1 CAPSULE BY MOUTH TWICE A DAY FOR 3 MONTHS 09/23 completed Not Available Not Available Not Available loratadin e 10 mg tablet TAKE 1 TABLET BY MOUTH EVERY DAY active Not Available Not Available No t Available amoxicill in 875 mg-potass ium clavulana te 125 mg tablet TAKE ONE TABLET BY MOUTH TWICE A DAY FOR 5 DAYS. 03/04 completed Not Available Not Available Not Available amoxicill in 500 mg-potass ium clavulana te 125 mg tablet TAKE 1 TABLET BY MOUTH TWICE A DAY FOR 7 DAYS active Not Available Not Available No t Available tobramyci n 0.3 %-dexamet hasone 0.1 % eye drops,ansley pension INSTILL 2 DROPS IN BOTH EYES TWICE DAILY FOR 10 DAYS 12/30 completed Not Available Not Available Not Available neomycin- polymyxin -hydrocor t 3.5 mg-10,000 unit/mL-1 % ear drops,ansley p 08/29 completed Not Available Not Available Not Available azithromy cassandra 500 mg tablet take 2 tablets (1,000 mg) by oral route once 04/06 completed azithrom ycin 500 mg oral tablet RxNorm: [id number] Allow Substitu tion: True Refill Denied: No Edited by: Idania Rouse ) on 04/06/20 Stopped by: Idania Rouse ) on 04/06/20 Not Available Not Available Not Available ciproflox acin 0.3 %-dexamet hasone 0.1 % ear drops,ansley pension INSTILL 4 DROPS INTO RIGHT EAR TWICE A DAY FOR 10 DAYS active Not Available Not Available No t Available metoprolo l tartrate 25 mg tablet TAKE ONE TABLET BY MOUTH ONCE DAILY FOR 90 DAYS 12/30 completed Not Available Not Available Not Available tinidazol e 500 mg tablet take 1 tablet po BID x 5 days with food 09/28 completed tinidazo le 500 mg oral tablet RxNorm: [id number] Allow Substitu tion: True Refill Denied: No Edited by: Tali Banks ) on 09/29/19 Stopped by: Tali Banks ) on 09/29/19 21 Not Available Not Available Not Available nitrofura ntoin monohydra te/macroc rystals 100 mg capsule Take 1 capsule every 12 hours by oral route for 7 days. 02/01 completed Not Available Not Available Not Available triamcino lone acetonide Apply thin film to affected area bid 12/15 completed Triamcin olone Acetonid e 0.025% Cream RxNorm: 5499515 Allow Substitu tion: True Refill Denied: No Not Available Not Available Not Available nystatin Apply a thin film with triamcin olone cream to affected area BID 10/22 completed Nystatin 100,000U /1gm Cream RxNorm: 095138 Allow Substitu tion: True Refill Denied: No Not Available Not Available Not Available chlorhexi dine gluconate Please shower with daily 12/15 completed Chlorhex idine Gluconat e 0.12% Oral Rinse RxNorm: 558861 Allow Substitu tion: True Refill Denied: No Refill DateOccu rred: 12/16/19 14 Not Available Not Available Not Available Bactrim DS 1 PO BID X 7 days 12/15 completed Bactrim DS 160mg/80 0mg Tablet RxNorm: 452530 Allow Substitu tion: True Refill Denied: No Refill DateOccu rred: 12/16/19 14 Not Available Not Available Not Available clindamyc in HCl 1 PO BID 02/15 completed Clindamy cassandra HCl 300mg Capsules Allow Substitu tion: True Refill Denied: No Not Available Not Available Not Available Symbicort 80 mcg-4.5 mcg/actua tion HFA aerosol inhaler INHALE TWO PUFFS BY MOUTH TWICE DAILY FOR 90 DAYS 09/23 completed Not Available Not Available Not Available Vagifem 10 mcg vaginal tablet INSERT 1 TABLET VAGINALL Y TWICE A WEEK active Not Available Not Available No t Available lidocaine 5 % topical ointment APPLY 1 APPLICAT ION 4 TIMES A DAY BY TOPICAL ROUTE NEEDED FOR 10 DAYS. active Not Available Not Available No t Available Flonase Allergy Relief 12/30 completed Flonase Allergy Relief Allow Substitu tion: True Refill Denied: No Refill DateOccu rred: 03/18/20 18 Edited by: Nakia Roque) on 02/11/20 19 Stopped by: cassia pat(Nakia Olivas) on Not Available Not Available Not Available ID NOW COVID-19 Test Kit TEST DIRECTED TODAY 08/29 completed Not Available Not Available Not Available Vitals Date Recorded Body height Body mass index (BMI) Body weight Systolic And Diastolic Provider Name and Address Organization Details Last Updated DateTime 11/09/2024 157.48 cm 29.8 kg/m2 64702.27 g 114/70 mm[Hg] [facility] 11/09/2024 13:02:06 Date Recorded Body height Body mass index (BMI) Body weight Systolic And Diastolic Provider Name and Address Organization Details Last Updated DateTime 11/23/2024 157.48 cm 29.8 kg/m2 92963.56 g 112/72 mm[Hg] [facility] 11/23/2024 13:08:01 Date Recorded Body height Body mass index (BMI) Body weight Systolic And Diastolic Provider Name and Address Organization Details Last Updated DateTime 12/07/2024 157.48 cm 29.6 kg/m2 67308.96 g 120/68 mm[Hg] [facility] 12/07/2024 13:10:36 Date Recorded Body height Body mass index (BMI) Body weight Systolic And Diastolic Provider Name and Address Organization Details Last Updated DateTime 12/15/2024 157.48 cm 29.6 kg/m2 58826.96 g 116/78 mm[Hg] Guillermo Fall [facility] [employer] [facility] 12/15/2024 12:18:53 Date Recorded Body height Body mass index (BMI) Body weight Body temperature Systolic And Diastolic Provider Name and Address Organization Details Last Updated DateTime 01/18/2025 157.48 cm 30.7 kg/m2 91280.5 2 g 99.7 [degF] 120/70 mm[Hg] Albadavy Mary [facility] [employer] 18:31:12 Social History Question Answer Notes LastModified by Organizat ion Details LastModified Time Tobacco Smoking Status [place] [employer] 05/04/2021 15:06:35 Are You Blind Or Do You Have Difficulty Seeing? No Information not available 08/29/2021 Are You Deaf Or Do You Have Serious Difficulty Hearing? No Information not available 08/29/2021 What Type Of Diet Are You Following? REGULAR [email or web address] Information not available 10/28/2022 How Many Children Do You Have? 4 Information not available 05/02/2021 What Is Your Relationship Status? Single [email or web address] Information not available 05/02/2021 Are You Sexually Active? Yes [email or web address] Information not available 05/02/2021 Sex: Female Functional Status Question Answer Note LastModified by Organizat ion Details LastModified Time Do you use any illicit or recreational drugs? No Information not available 05/04/2021 Do you or have you ever used any other forms of tobacco or nicotine? No Information not available 08/29/2021 What is your level of alcohol consumption? None Information not available 05/04/2021 Are you currently employed? Yes [email or web address] Information not available 09/24/2023 What is your exercise level? Occasional Information not available 05/04/2021 Mental Status None recorded. Family History Relationship Description Onset Age of this Age Resolved Age Notes LastModified by Organization Details LastModified Time Mother Essential hypertension [email or web address] Not available 02/2025 11:53:01 Mother Hypercholest erolemia [email or web address] Not available 2024 11:53:12 Unspecified Relation Type 1 diabetes mellitus niece sister side [email or web address] Not available 12/15/2024 11:53:30 Medical History Condition Response High Blood Pressure Y GERD (reflux) Y High Cholesterol Y Gynecological History Statement/Question Response If Post Menopausal, Age at Menopause [age] Date of Last Colonoscopy 06/09/2022 Frequency of Cycle (Q days) 28 Date of LMP Most Recent Bone Density HPV Vaccine N Date of Last Pap Smear Most Recent Mammogram 08/11/2024 Current Control Method Hysterectom y Age at Menarche 11 Obstetrics History GPAL:G 4 P 4 0 0 4 Type Value Full Term 4 Living 4 Total 4 Immunizations Vaccine Type Date Status Note Provider Nam e and Address Organization Details Recorded Time SARS-COV-2 (COVID-19) vaccine, UNSPECIFIED 06/30/2020 completed Rosemarie lamas, [facility] 05/04/2021 15:05:43 Past Encounters Encounter ID Performer Location Encounter Start Date Encounter Closed Date Diagnosis/Indication Diagnosis SNOMED-CT Code Diagnosis ICD10 Code Diagnosis IMO Codes Diagnosis Note [id number] Randi Lopez-Joss is, CN[facility]iel [facility] [address] [place] [address] 05/04/2021 14:59:01 05/04/2021 15:25:43 Vaginal discharge 183599437 N89.8 N76.0 reviewed vulvar care guidelines , rec baking soda soaks after intercours e Menopausal symptom 30472 002 N95.1 Discussed Venlofaxin e vs HRT desires HRT, reviewed r/b and questions answered [id number] Faith Lemus, [facility] [address] [place] [address] 08/29/2021 14:29:27 08/29/2021 18:06:25 Vaginal discharge 211212461 N89.8 N76.0 [id number] Randi talbert, [facility] [address] [place] [address] 03/04/2022 15:59:14 03/04/2022 16:54:24 Venereal disease screening 328672861 Z11.3 N89.9 Candidiasis of vagina 72 504306 B37.3 reviewed vulvar care guidelines [id number] Randi talbert, [facility] [address] [place] [address] 05/17/2022 16:48:50 05/20/2022 11:53:41 Vaginal irritation 490843442 N89.8 Candidiasis of vagina 72 441852 B37.31 reviewed vulvar care guidelines [id number] JOHAN MENESES DO [facility] [address] [place] [address] 07/03/2022 10:44:25 07/04/2022 10:19:31 Dyspareunia 24490617 N94.10 Discussed vaginal moisturize rs and lubricants as starting options. If these do not help, can discuss Vaginal Estrogen Vaginal va ult prolapse 431291008 N81.89 51 yo s/p VH in 2007 presented for vaginal vault prolapse after an episode of constipati on -On physical exam patient had overall good apical support.-N o need fur further evaluation unless prolapse continues to occur [id number] Anja B Schifano, [address] [address] 10/28/2022 18:04:57 10/31/2022 14:00:28 Vaginal discharge 763062648 N89.8 N76.0 Increased frequency of urination 600844400 R35.0 Menopausal symptom 91056 002 N95.1 Reviewed risks/bene fits of HT. Risks include rare risk of breast cancer with combine EPT ( 06/999/yea r after 5 year/ 7 years if ET), Endometria l hyperplasi a and cancer with inadequate ly opposed estrogen, VTE, gallstones , and cholesysti tis. Benefits include relief of vasomotor symptoms, decrease in colorectal ca risk, decreased bone loss, decrease joint pain/stiff ness, increase vaginal lubricatio n and blood flow, reduced risks for Type-2 diabetes, and reduced all-cause mortality in women who are started < 10 years from onset of menopause and < 60 years old. [id number] ANTOINETTE JONES [address] [address] 11/14/2022 10:50:01 11/14/2022 15:29:38 Vaginal discharge 315642360 N89.8 N76.0 Bacterial vaginosis 4197 91933 N76.0 Candidiasis of vagina 72 775256 B37.31 [id number] JOHAN MENESES DO [address] [address] 02/20/2023 11:30:19 02/21/2023 11:34:50 Venereal disease screening 600302544 Z11.3 Vaginal va ult prolapse 243580781 N81.89 51 yo s/p VH in 2007 presented for vaginal vault prolapse after an episode of constipati on Incomplete emptying of urinary bladder 751098882 R39.14 [id number] ANTOINETTE JONES [address] [address] 06/16/2023 16:57:38 06/17/2023 12:11:54 Gynecologic examination 20477737 Z01.419 Screening for malignant neoplasm of cervix 834733319 Z12.4 ASCCP guidelines reviewed with patient. Pap Hx: No pap collected today. Pt states understand ing and is amenable to POC.Hyster ectomy Screening mammography of bilateral breasts 8770312501 67149 Z12.31 Pt educated on breast cancer screening guidelines , and discussed recommenda tion for scheduling imaging at hospital of her choice. Reviewed recommenda tion to have imaging done at same facility if possible as previous screenings . Pt states understand ing of POC. Screening colonoscopy 44 7965099 Z12.11 Acute vaginitis 95598771 N76.0 Venereal d isease screening 806707628 Z11.3 N89.9 [id number] THANG VILLA [facility] [address] [place] [address] 09/24/2023 11:30:34 09/24/2023 15:08:42 Venereal disease screening 357198194 Z11.3 The patient has requested comprehens umberto STD testing. Blood work has been ordered for HIV, syphilis, hepatitis B and C, along with testing for BV, yeast, gonorrhea, chlamydia, and trichomona s. The results will be communicat ed to the patient once they are available, and further management will be based on the test results. Vaginal discharge 157205 006 N89.8 The patient's fishy odor and discharge may be related to her acute vaginitis or the medication prescribed for vaginal dryness. The swab test will help determine the cause of the odor and discharge. The patient has been advised to try baking soda soaks for 15-20 minutes to help neutralize the odor and discharge. The patient has a history of acute vaginitis and has tried folic acid suppositor ies in the past with some success. A swab test has been performed to confirm the diagnosis and determine the appropriat e treatment. If the test comes back positive, a prescripti on for medication will be provided. The patient has been advised to continue using folic acid suppositor ies after intercours e, after periods, and when experienci ng symptoms for three nights in a row. [id number] THANG VILLA [facility] [address] [place] [address] 12/31/2023 14:08:19 12/31/2023 15:25:09 Vaginal discharge 141311158 N89.8 Pt educated on exam findings, and discussed POC. Vaginal cx collected and sent. Pt advised to avoid fragrant soaps/laun dry detergents , use of baking soda soaks, having partner change soaps, etc. Further POC pending lab result review. Venereal d isease screening 199635714 Z11.3 The patient has requested comprehens umberto STD testing. Blood work has been ordered for HIV, syphilis, hepatitis B and C, along with testing for BV, yeast, gonorrhea, chlamydia, and trichomona s. The results will be communicat ed to the patient once they are available, and further management will be based on the test results. Urinary tr act infectious disease [id number] N39.0 Pt comes in today with complaints /concern for UTI. S/S:Pain or burning while urinatingF requent urinationF eeling the need to urinate despite having an empty bladderBlo lizeth urinePress ure or cramping in the groin or lower abdomen POCSure SwabUrine CultureDip : Unremarkab le [id number] GUILLERMO COWART NP [facility] [address] [place] [address] 01/30/2024 13:46:42 01/30/2024 16:05:37 Vaginal discharge [id number] N89.8 N76.0 51500 She presents today with c/o a white creamy discharge that she's had for approx a week. The breast pain she's had for the last 3-4 days on her left breast. Says that it comes & goes. Also, is concerned because she has oral yeast & has been using medication but continues to have it. POCWill check some labsvagina l swabsend in some medication to use to get rid of oral thrushwill treat if needed once vaginal swab is backsend for a mammogram & US Approximat madeline thirty minutes spent with patient in consultati on (>50% face-to-fa ce). Patient labs and notes were reviewed. Patient questions were answered. Additional patient care was coordinate d. Pain of left breast 1010 521881 N64.4 [id number] Vaginitis 52580187 N76.0 Candidiasis of mouth 797 63057 B37.0 334476 Mycosis 3378235 B37.9 [id number] TREVOR LOVETT, [facility] [address] [place] [address] 03/03/2024 09:59:16 03/03/2024 12:04:02 Midline cystocele [id number] N81.11 [id number] Patient had hysterecto my in 2007- at [facility] by Dr Madsen, for heavy bleeding and cramps Prolapse happening more often now and has to push back in couple times of week. Patient seen MD in February and was referred to Urogyn in [facility] for this condition. Patient states that they told her it was not surgical. Patient does not want to travel all the way to [facility]. Patient would like to see an MD in our practice for evaluation of cystocele. Patient would like to discuss surgical options. Vaginal pain 67412029 R1 0.2 623222 -Patient denies abnormal discharge, itching, or odor-Will rule out infection as etiology for pain.-Sure swab collected, will treat based upon results. [id number] Yovani Alaniz, [facility] [address] [place] [address] 03/17/2024 11:57:09 03/19/2024 12:35:58 Cystocele [id number] N81.10 N81.6 [id number] I recommende d surgical interventi on with anterior and posterior repair to address the prolapse. Discussed the procedure in detail which will involve a vaginal incision to access and repair the affected tissues, reinforcin g weakened structures and reducing the capacity of the vaginal canal to provide additional support.I recommende d concurrent periurethr al injections of Bulkamid to address the patient's urinary incontinen ce. I discussed the mechanism of action of Bulkamid, describing it as a polyacryla mide gel composed of 98% water and 2% synthetic material. Explained that the injections would be placed around the urethra to increase tissue bulk and support, thereby improving urinary control.I reviewed the risks and benefits of the procedures , including expected recovery time and postoperat umberto restrictio ns. 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 [id number] Venita Andrews CNM [facility] [address] [place] [address] 08/06/2024 16:34:26 08/06/2024 17:32:59 Pain in pelvis 12673309 R10.2 29922 Pt had surgery 10 days ago and is noticing increased lower back pain and vaginal fullness. She is concerned about separation of tissue or prolapse. No evidence of abnormalit ies on exam.Recom mended rest and continue pain medication as needed. F/u early next for post-op evaluation . Vaginal discharge 354927 006 N89.8 72105 [id number] America Lundberg MD [facility] [address] [place] [address] 08/10/2024 16:18:54 08/19/2024 12:34:05 Postoperative visit 150437151 Z09 status post A and P repair and Bulkomid. doing welldiscus sed recent UTIcontinu e stool softeners, avoid constipati onavoid tub baths [facility] [id number] America Lundberg MD [facility] [address] [place] [address] 09/07/2024 12:44:24 09/07/2024 14:06:10 Postoperative visit 245415224 Z09 status post A and P repair and Bulkomid. doing well, well healed Acute vaginitis 47878767 N76.0 14482 Menopausal syndrome 1237 86155 N95.1 688588 discussed menopausal symptoms and role of estrogen replacemen t. Patient without contraindi cations to estrogen.R eviewed safety of transderma l (preferred ) over oralDesire s to try the patch [id number] Venita Andrews CNM [facility] [address] [place] [address] 11/03/2024 17:38:08 11/03/2024 18:17:11 Vaginal odor 973989778 N89.8 197594 Pt reports garlic smelling odor and pressure.A lso experienci ng introital pain w/intercou rse.No abnormalit ies seen on examContin ue estrogen cream.F/u as needed Abnormal urine odor 8769 003 R82.90 760663 [id number] America Lundberg MD [address] [address] 11/09/2024 11:08:18 11/11/2024 10:23:42 Superficial pain on intercourse 668927574 N94.11 [id number] Feel that this may be due to perineal scar tissue and lack of elasticity .Advised that while her repair looks good and vaginal tissue healthy, the perineum may need to be revised so as to open up a bit to allow intercours eShe has tried vaginal dilators and estrogen, neither has solved the problem and she is frustrated .Desires to set up revision and will schedule. [id number] America Lundberg MD [address] [address] 11/23/2024 12:31:12 11/23/2024 20:55:05 Postoperative visit 310552909 Z09 doing well following perineal revisionDi scussed local [facility] 1mo [id number] America Lundberg MD [address] [address] 12/07/2024 11:04:15 12/07/2024 13:52:15 Postoperative visit 672390425 Z09 status post perineorrh aphy and healing [facility] Menopausal symptom 48700 002 N95.1 956674 will inc dose to 0.05mg biweekly patchResta rt vagifem tablets [id number] THANG VILLA [address] [address] 12/15/2024 12:07:48 12/15/2024 14:44:57 Breast lump 60829458 N63.15 [id number] -quarter size lump noted 9 o'clock, tender, non-moveab le.Pt educated on exam findings, and discussed recommenda tion for L breast U/S. Pt states understand ing of POC. [id number] Venitanancy Andrews CNM [facility] [address] [place] [address] 01/18/2025 18:08:40 01/18/2025 19:07:28 Viral syndrome [id number] R68.89 95199 Pt was exposed to COVID last week. Flu A/B and COVID POC testing negative.U pper respirator y symptoms otherwise. Z-Cory and otherwise treatment for symptomati c relief.Be seen in the ED for chest pain, SOB, difficulti es breathing. Otherwise f/u as needed Acute low back pain 2788 70589 M54.50 [id number] Health Concerns Section Related Observation LastModified by Organization Detai ls LastModified Time None Recorded Concern Status LastModified by Organization Details LastModified Time None Recorded Advance Directives Directive None Recorded Payers Insurance Date Sequence Insurance Name Policy Number Policy Cardoza Covered Member ID Cardoza Member ID Guarantor Name 01/24/2025 1 [employer] [id number] Elizabeth Rodriguez [id number] Elizabeth Rodriguez 12/07/2024 1 [facility] - DOS ON OR AFTER 20 (MEDICAID REPLACEMENT - HMO) Elizabeth Rodriguez [id number] Elizabeth Rodriguez 12/15/2024 2 [place] DEPARTMENT OF PUBLIC AID Elizabeth Rodriguez [id number] Elizabeth Rodriguez Notes Date Note Type Note Provider Name and Address Organization Details Recorded Time 11/09/2024 text/html ROS as noted in the HPI Elizabeth is coming back in due to having some problems after her A and P repair. She has felt that there is tightness to the vaginal opening, her partner is unable to enter vaginaShe has used estrace cream and also coconut oil for lubrication and has started an estradiol patch. She also bought vaginal dilators, and has used all sizes up to the largest one, but has trouble getting that in.Last week, she saw Venita after having some vaginal bleeding after using the dilator and a small tear was seen America Lundberg MD [facility] [place], [address], [facility] [employer] 11/11/2024 01:26:16 11/23/2024 text/html ROS as noted in the HPI Elizabeth is coming in to have a post op visit from her perineorrhapy. She had a scar at the introitus which was making intercourse not possible and Alyse reports she is doing well but is having some itching and irritation after using the premarin creamShe is doing well with her Bulkomid and reports much improved urinary leakage America Lundberg MD [address] [place] [address], [phone], [facility] [employer] 11/23/2024 20:54:59 12/07/2024 text/html ROS as noted in the HPI Elizabeth states she is doing well. Still a little tender in vaginal area, itching is betterFeels like hot flashes are coming back. We started her on estradiol patch 0.0375mg America Lundberg MD [address] [place] [address], [phone], [facility] [employer] [facility] 12/07/2024 13:52:07 12/15/2024 text/html ROS as noted in the HPI Elizabeth is a 54 year old woman. Pt feels a discomfort on right side of breast on going since . Pt stated that she saw a bump on her right breast today. THANG VILLA [address] [place], [address], [facility] [employer] 12/15/2024 13:41:34 01/18/2025 text/html Elizabeth is here for COVID symptomspatient c/o headache, body aches and lower back pains, and feeling congested since last week Venita Andrews CNM [address] [place], [address], [facility] [employer] 01/18/2025 18:58:49 OBGyn Episode Ob Episode Information Episode Created Date Number of Fetuses Patient Bloodtype Patient rh Status Prepregnancy Weight lbs Domestic Partner Domestic Partner Phone Father Name Structural Test Engineer Status 12/16/19 25 1 CLOSED Fetus Data First Name Last Name Admitted to NICU Weight (g) Sex Living Outcome Pediatric Complications Fetus ID Race Codes Race Delivery Type F Full Term [id number] Clarence Calculation Initial Clarence Date Initial Exam Date Initial Exam Provider Initial Ultrasound Date Last Menstrual Period Date Ultra Sound Weeks Gestation 0 Eighteen To Twenty Week Clarence Update Ultra Sound Date Fundal Height At Umbil Quickening Date Ultra Sound Latest Weeks Gestation Final Clarence Confirmed By Final Clarence Confirmed Date Final Clarence Date Ultra Sound Latest Days Gestation 0 0 Menstrual History Last Menstrual Date Menses Monthly On Bcp Conception Prior Menses Frequency Hcg Plus Date Menarche Onset Age Delivery Information Delivery Date Delivery Type Labor Anesthesia Weeks Gestation Incision Type Labor Labor Length Hrs Delivered By Post Complications Tubal Sterilization Discharge Date Comments 8 Discharge Information Feeding Method Contraceptive Method Maternal HG B and HCT Levels Ob Episode Information Episode Created Date Number of Fetuses Patient Bloodtype Patient rh Status Prepregnancy Weight lbs Domestic Partner Domestic Partner Phone Father Name Structural Test Engineer Status 12/16/19 25 1 CLOSED Fetus Data First Name Last Name Admitted to NICU Weight (g) Sex Living Outcome Pediatric Complications Fetus ID Race Codes Race Delivery Type M Full Term [id number] Clarence Calculation Initial Clarence Date Initial Exam Date Initial Exam Provider Initial Ultrasound Date Last Menstrual Period Date Ultra Sound Weeks Gestation 0 Eighteen To Twenty Week Clarence Update Ultra Sound Date Fundal Height At Umbil Quickening Date Ultra Sound Latest Weeks Gestation Final Clarence Confirmed By Final Clarence Confirmed Date Final Clarence Date Ultra Sound Latest Days Gestation 0 0 Menstrual History Last Menstrual Date Menses Monthly On Bcp Conception Prior Menses Frequency Hcg Plus Date Menarche Onset Age Delivery Information Delivery Date Delivery Type Labor Anesthesia Weeks Gestation Incision Type Labor Labor Length Hrs Delivered By Post Complications Tubal Sterilization Discharge Date Comments 5 Discharge Information Feeding Method Contraceptive Method Maternal HG B and HCT Levels Ob Episode Information Episode Created Date Number of Fetuses Patient Bloodtype Patient rh Status Prepregnancy Weight lbs Domestic Partner Domestic Partner Phone Father Name Structural Test Engineer Status 12/16/19 25 1 CLOSED Fetus Data First Name Last Name Admitted to NICU Weight (g) Sex Living Outcome Pediatric Complications Fetus ID Race Codes Race Delivery Type F Full Term [id number] Clarence Calculation Initial Clarence Date Initial Exam Date Initial Exam Provider Initial Ultrasound Date Last Menstrual Period Date Ultra Sound Weeks Gestation 0 Eighteen To Twenty Week Clarence Update Ultra Sound Date Fundal Height At Umbil Quickening Date Ultra Sound Latest Weeks Gestation Final Clarence Confirmed By Final Clarence Confirmed Date Final Clarence Date Ultra Sound Latest Days Gestation 0 0 Menstrual History Last Menstrual Date Menses Monthly On Bcp Conception Prior Menses Frequency Hcg Plus Date Menarche Onset Age Delivery Information Delivery Date Delivery Type Labor Anesthesia Weeks Gestation Incision Type Labor Labor Length Hrs Delivered By Post Complications Tubal Sterilization Discharge Date Comments 2 Discharge Information Feeding Method Contraceptive Method Maternal HG B and HCT Levels Ob Episode Information Episode Created Date Number of Fetuses Patient Bloodtype Patient rh Status Prepregnancy Weight lbs Domestic Partner Domestic Partner Phone Father Name Structural Test Engineer Status 12/16/19 25 1 CLOSED Fetus Data First Name Last Name Admitted to NICU Weight (g) Sex Living Outcome Pediatric Complications Fetus ID Race Codes Race Delivery Type F Full Term [id number] Clarence Calculation Initial Clarence Date Initial Exam Date Initial Exam Provider Initial Ultrasound Date Last Menstrual Period Date Ultra Sound Weeks Gestation 0 Eighteen To Twenty Week Clarence Update Ultra Sound Date Fundal Height At Umbil Quickening Date Ultra Sound Latest Weeks Gestation Final Clarence Confirmed By Final Clarence Confirmed Date Final Clarence Date Ultra Sound Latest Days Gestation 0 0 Menstrual History Last Menstrual Date Menses Monthly On Bcp Conception Prior Menses Frequency Hcg Plus Date Menarche Onset Age Delivery Information Delivery Date Delivery Type Labor Anesthesia Weeks Gestation Incision Type Labor Labor Length Hrs Delivered By Post Complications Tubal Sterilization Discharge Date Comments 0 Discharge Information Feeding Method Contraceptive Method Maternal HG B and HCT Levels
--- OUTSIDE RECORDS SUMMARY | 2025-04-04 16:59 | XMS_ITS | Clinical Summary ---
Author Organization [facility] Address [address] [place] [address] Care Team Providers Care Pneumatic Jacketer Name Role Phone Familia Mcdonald MD Primary Care Provider + [phone] Allergies Active Allergy Reactions Criticality Noted Date Comments Statins Itching Low 09/24/2017 Sulfamethoxazole-Trimethoprim Unknown 2013 Bactrim Medications fluticasone propionate (FLONASE) 50 MCG/ACT nasal spray 2 sprays by Nasal route daily. 1 mL 8 Active cetirizine (ZYRTEC) 5 MG tablet Take 1 tablet (5 mg total) by mouth daily. Active loratadine (CLARITIN) 10 MG tablet Take 1 tablet (10 mg total) by mouth daily. Active montelukast (SINGULAIR) 4 MG chewable tablet Chew 1 tablet (4 mg total) by mouth nightly at bedtime. Active lisinopril-hydroCHL OROthiazide (ZESTORETIC) 10-12.5 MG tablet Take 1 tablet by mouth daily. 4 Active atorvastatin (LIPITOR) 20 MG tablet Take 1 tablet (20 mg total) by mouth daily. 4 Active ondansetron (ZOFRAN-ODT) 4 MG disintegrating tablet Take 1 tablet (4 mg total) by mouth every 8 (eight) hours as needed for Nausea. 4 Active nystatin (MYCOSTATIN) 048983 UNIT/ML suspension Take 2 mLs (200,000 Units total) by mouth 4 (four) times daily. 4 Active ferrous sulfate, 65 mg elemental, 325 (65 FE) MG tablet Take 1 tablet (325 mg total) by mouth daily. 5 Active vitamin D2, ergocalciferol, (DRISDOL) 1.25 mg capsule Take 1 capsule (1.25 mg total) by mouth every 7 days. 5 Active omeprazole (PRILOSEC) 40 MG capsule Take 1 capsule (40 mg total) by mouth daily. Active metroNIDAZOLE (FLAGYL) 500 MG tablet Take 1 tablet every 12 hours by oral route for 7 days. 5 Active traMADol (ULTRAM) 50 MG tabletIndications:A cute Pain < 7 Day Supply Take 1 tablet (50 mg total) by mouth every 6 (six) hours as needed for Pain. Indications: Acute Pain < 7 Day Supply 15 tablet 5 Active Active Problems Problem Noted Date Diagnosed Date Introital dyspareunia 11/19/2024 Family History Medical History Relation Comments Hypertension Father Hypertension Mother Relation Status Comments Father Mother Social History Tobacco Use Types Packs/Day Years Used Date Smoking Tobacco: Never Smokeless Tobacco: Never Alcohol Use Standard Drinks/Week Comments Yes 0 (1 standard drink = 0.6 oz pur e alcohol) OCCASIONAL Comments No Sex and Gender Information Value Date Recorded Sex Assigned at Female 07/27/2024 9:23 AM [employer] Legal Sex Female 4:13 PM CDT Gender Identity Not on file Sexual Orientation Not on file Last Filed Vital Signs Vital Sign Reading Time Taken Comments Blood Pressure 152/98 11/19/2024 12:00 PM CDT Pulse 75 11/19/2024 12:00 PM CDT Temperature 36.1 C (97 F) 11/19/2024 12:00 PM CDT Respiratory Rate 16 11/19/2024 12:00 PM CDT Oxygen Saturation 99% 11/19/2024 12:00 PM CDT Inhaled Oxygen Concentration - - Weight 75.8 kg (167 lb 1.7 oz) 11/19/2024 6:30 A M CDT Height 157.5 cm (5' 2) 11/19/2024 6:30 AM CDT Body Mass Index 30.56 11/19/2024 6:30 AM CDT Plan of Treatment Health Maintenance Due Date Last Done Comments Colorectal Cancer Screening Colonoscopy (10 Years) 1969 Annual Physical 1972 Hepatitis C 1987 Hepatitis B Vaccines (1 of 3 - 19+ 3-dose series) 1988 Pneumococcal Vaccine: 50+ Years (1 of 1 - PCV) 2019 Mammogram Screening 08/24/2020 08/24/2018 COVID-19 Vaccine ( - season) 2025 04/27/2021, 10/20/2020, 06/30/2020, Additional history exists Influenza Adult (#1) 2025 03/11/2024, 03/10/2023, 02/21/2022, Additional history exists DTaP, Tdap and Td Vaccines (7 - Td or Tdap) 12/28/2033 12/29/2023, 11/12/1979, 01/12/1971, Additional history exists Zoster Vaccines Completed 05/08/2022, 02/22/2022 Hepatitis A Vaccines Aged Out No long er eligible based on patient's age to complete this topic Meningococcal B Vaccine Aged Out No l onger eligible based on patient's age to complete this topic Meningococcal Vaccine Aged Out No samson ling eligible based on patient's age to complete this topic RSV Immunizations Under 20 Months Aged Out No longer eligible based on patient's age to complete this topic Medical Devices Implanted Type Area Fish Checker Device Identifier Shelf Expiration Date Model / Serial / Lot Bulkamid Urethra Bulking Agent - [id number] Implanted:Qty: 1 on 07/27/2024 by Yovani Alaniz DO at [facility] [employer] 12/06/2026 [id number] / / [id number] Description:2 injections use d Procedures Procedure Name Priority Date/Time Associated Diagnosis Comments MG SCREENING W GABRIELA TJ DIGI Routine 08/24/2018 2:00 PM CDT Breast screening, unspecified from Last 3 Months or Most Recently Relevant to Health Maintenance Results * MG SCREENING W GABRIELA TJ DIGI (08/24/2018 2:00 PM CDT) Anatomical Region Laterality Modality Breast Bilateral Mammography 08/24/2018 2:02 PM CDT Impressions 08/24/2018 2:04 PM CDT IMPRESSION: 1. Stable mammographic appearance with no new findings to suggest malignancy in either breast. Assessment: ACR BI-RADS Category 2 - Benign. Recommendation: 1: Routine screening mammogram bilateral in 1 year Comments: Narrative 08/24/2018 2:04 PM CDT Examination: Digital bilateral screening mammogram with 3-D tomosynthesis Exam Date/Time: 08/24/2018 1:43 PM Reason For Exam: Z12.31 No personal or family history of breast cancer. No prior breast procedures. No current complaints. Comparison: Mammograms from 12/05/2016 12/23/2011 03/31/2010 03/11/2009 Technique: Digital screening mammography of both breasts was performed in addition to 3-D Tomosynthesis technique. This study was read with the assistance of a computer-aided detection system. Tissue density: The breast tissue is extremely dense. Findings: Benign punctate calcifications again noted. Benign left axillary lymph nodes. Parenchymal pattern stable from prior studies. There is no focal asymmetry, dominant mass lesion, area of skin thickening, or cluster of suspicious appearing calcifications in either breast to suggest malignancy. Bernie Pedro MD MAMMO Final Result from Last 3 Months or Most Recently Relevant to Health Maintenance Insurance MEDICAID AETNA Advance Directives * Full Code (Latest Code Status on File) Date Activated Date Inactivated Comments 07/27/2024 3:55 PM 07/27/2024 7:36 PM Care Teams Pneumatic Jacketer Relationship Specialty Start Date End Date Familia Mcdonald MD PCP - General INTERNAL MEDICINE 08/24/18
--- OUTSIDE RECORDS SUMMARY | 2025-04-04 16:59 | XMS_ITS | Encounter Summary ---
Author Organization [facility] Address [address] [place] [id number] Care Team Providers Care Claims Analyst Name Role Phone Familia Sotelo MD Primary Care Provider [phone] Encounter Details Date Type Department Care Team (Late st Contact Info) Description 11/18/2024 Prep for Procedure [facility] [place], [place] [id number] James Kemp MD [address] [place] [address] Social History Tobacco Use Types Packs/Day Years Used Date Smoking Tobacco: Never Smokeless Tobacco: Never Alcohol Use Standard Drinks/Week Comments Yes 0 (1 standard drink = 0.6 oz pur e alcohol) OCCASIONAL Comments No Sex and Gender Information Value Date Recorded Sex Assigned at Female 07/27/2024 9:23 AM [employer] Legal Sex Female 4:13 PM CDT Gender Identity Not on file Sexual Orientation Not on file documented as of this encounter Functional Status * Calculated C-SSRS Risk Score (Lifetime/Recent) Answer Date of Assessment Author Status No Risk Indicated 11/19/2024 6:30 AM Angeli Esteban RN Active * [place] Suicide Severity Rating Scale (Screener/Recent Self-Report) Question Answer Date of Assessment Author Status 1. Wish to be (Past 1 Month) No 11/19/2024 6:30 AM Augusta Esteban RN Ac tive 2. Non-Specific Active Suicidal Thoughts (Past 1 Month) No 11/19/2024 6:30 AM Augusta Esteban RN Ac tive 6. Suicidal Behavior (Lifetime) No 11/19/2024 6:30 AM Augusta Esteban RN Ac tive documented as of this encounter H&P Notes * James Kemp MD - 11/18/2024 11:48 PM CDT Attending Provider: No att. providers found PCP: FAMILIA SOTELO MD Elizabeth Rodriguez is an 54-year-old female. Reason for Admission: dyspareunia HPI: Elizabeth is a 54 yr old who had an anterior and posterior repair with perineorrhaphy in Jul 2024. After allowing for full healing, she has been unable to have sexual intercourse. She has tried vaginal estrogen and vaginal dilators. She reports pain and tightness at the introitus area. After attempting various measures to alleviate the problem, she now presents for surgical revision. Past Medical History[1] Allergies: Allergies Allergen Reactions Sulfamethoxazole-Trimethoprim Unknown Bactrim Statins Itching Social History Tobacco Use Smoking status: Never Smokeless tobacco: Never Substance Use Topics Alcohol use: Yes Comment: OCCASIONAL Past Surgical History[2] Family History[3] Current Outpatient Medications on File Prior to Visit Medication Sig atorvastatin (LIPITOR) 20 MG tablet Take 1 tablet (20 mg total) by mouth daily. cetirizine (ZYRTEC) 5 MG tablet Take 1 tablet (5 mg total) by mouth daily. ferrous sulfate, 65 mg elemental, 325 (65 FE) MG tablet Take 1 tablet (325 mg total) by mouth daily. fluticasone propionate (FLONASE) 50 MCG/ACT nasal spray 2 sprays by Nasal route daily. lisinopril-hydroCHLOROthiazide (ZESTORETIC) 10-12.5 MG tablet Take 1 tablet by mouth daily. loratadine (CLARITIN) 10 MG tablet Take 1 tablet (10 mg total) by mouth daily. montelukast (SINGULAIR) 4 MG chewable tablet Chew 1 tablet (4 mg total) by mouth nightly at bedtime. nystatin (MYCOSTATIN) 464983 UNIT/ML suspension Take 2 mLs (200,000 Units total) by mouth 4 (four) times daily. omeprazole (PRILOSEC) 40 MG capsule Take 1 capsule (40 mg total) by mouth daily. ondansetron (ZOFRAN-ODT) 4 MG disintegrating tablet Take 1 tablet (4 mg total) by mouth every 8 (eight) hours as needed for Nausea. vitamin D2, ergocalciferol, (DRISDOL) 1.25 mg capsule Take 1 capsule (1.25 mg total) by mouth every7 days. No current facility-administered medications on file prior to visit. There were no vitals taken for this visit. Review of Systems Constitutional: Negative for fever and malaise/fatigue. HENT: Negative for hearing loss. Eyes: Negative for blurred vision. Respiratory: Negative for cough and shortness of breath. Cardiovascular: Negative for chest pain and palpitations. Gastrointestinal: Negative for abdominal pain, nausea and vomiting. Genitourinary: Negative for dysuria. Musculoskeletal: Negative for back pain. Skin: Negative for rash. Neurological: Negative for dizziness and headaches. Psychiatric/Behavioral: Negative for depression. The patient is not nervous/anxious. Physical Exam Constitutional: General: She is not in acute distress. Appearance: Normal appearance. HENT: Head: Normocephalic. Cardiovascular: Rate and Rhythm: Normal rate and regular rhythm. Pulmonary: Effort: Pulmonary effort is normal. Breath sounds: Normal breath sounds. Abdominal: Palpations: Abdomen is soft. There is no mass. Tenderness: There is no abdominal tenderness. Genitourinary: Comments: Perineum well healed. Perineal midline scar visible. Introitus is patient, vagina withoutgranulation tissue. No cystocele or rectocele. Uterus and cervix absent Musculoskeletal: Cervical back: Normal range of motion and neck supple. Right lower leg: No edema. Left lower leg: No edema. Skin: General: Skin is warm and dry. Findings: No rash. Neurological: General: No focal deficit present. Mental Status: She is alert and oriented to person, place, and time. Psychiatric: Mood and Affect: Mood normal. Behavior: Behavior normal. Assessment: Dyspareunia at introitus after anterior and posterior repair with perineorrhapy. Vaginal estrogens and dilators have not improved condition Feel that this is related to scar tissue at introitus Plan: Surgical plan is for revision of perineal scar to create more patent opening to allow for vaginal intercourse Plan of care is discussed with patient and she desires to proceed We discussed the recovery and risks of infection and poor healing JAMES KEMP MD 11/18/2024 [1] Past Medical History: Diagnosis Date Acid reflux Hyperlipidemia [2] Past Surgical History: Procedure Laterality Date HYSTERECTOMY REPAIR RECTOCELE [3] Family History Problem Relation Name Age of Onset Hypertension Mother Hypertension Father documented in this encounter Plan of Treatment Not on file documented as of this encounter Visit Diagnoses Not on filedocumented in this encounter Care Teams Claims Analyst Relationship Specialty Start Date End Date Familia Sotelo MD PCP - General INTERNAL MEDICINE 08/24/18 documented as of this encounter
--- OUTSIDE RECORDS SUMMARY | 2025-04-04 16:59 | XMS_ITS | Clinical Summary ---
Author Organization [facility] at [facility] Address [address] [place] [address] Care Team Providers Care Program Director/Morning Show Host Name Role Phone Julissa Dejesus Primary Care Provider [phone] Home Quarles MD Unavailable [phone] America Lundberg MD Unavailable [phone] Jenny Rodriguez MD Unavailable [phone] Allergies Active Allergy Reactions Criticality Noted Date Comments Sulfamethoxazole-Trimethop rim Unknown 12/15/2013 sulfamethoxazole / trimethoprim Bactrim Medications ondansetron ODT (ZOFRAN-ODT) 4 mg disintegrating tablet Take 1 tablet (4 mg total) by mouth every 8 (eight) hours as needed for nausea or vomiting 20 tablet 06/02/20 Active ergocalciferol (VITAMIN D) 50,000 unit capsule Take 1 capsule (50,000 Units total) by mouth every 14 (fourteen) days Active fluticasone propionate (FLONASE) 50 mcg/actuation nasal sprayIndications:Chroni c Non-Allergic Rhinitis Administer 2 sprays into each nostril daily 3 each 3 01/27/20 25 2025 Active lisinopril-hydroCHLOROt hiazide (ZESTORETIC) 10-12.5 mg per tabletIndications:hyper tension Take 1 tablet by mouth daily 90 tablet 3 01/27/20 25 2025 Active montelukast (SINGULAIR) 10 mg tabletIndications:Non-s easonal allergic rhinitis, unspecified trigger Take 1 tablet (10 mg total) by mouth nightly 90 tablet 3 01/27/20 25 2025 Active omeprazole (PriLOSEC) 40 mg capsuleIndications:Ladarius roesophageal reflux disease without esophagitis Take 1 capsule (40 mg total) by mouth daily 90 capsule 3 01/27/20 25 2025 Active estradioL 0.5 mg/0.5 gram (0.1 %) gel in packet Place 0.5 mg on the skin 2 (two) times a week Active cetirizine (ZyrTEC) 10 mg tabletIndications:Non-s easonal allergic rhinitis, unspecified trigger Take 1 tablet (10 mg total) by mouth daily as needed for allergies 90 tablet 3 01/27/20 25 2025 Active atorvastatin (LIPITOR) 40 mg tabletIndications:Pure hypercholesterolemia Take 1 tablet (40 mg total) by mouth nightly 90 tablet 3 01/27/20 25 2025 Active methylPREDNISolone (MEDROL DOSEPACK) 4 mg DosepackIndications:Chr onic pansinusitis Take as directed on package. 21 tablet 01/27/20 Active Active Problems Problem Noted Date Diagnosed Date Gastroesophageal reflux disease without esophagi tis 01/26/2025 Pure hypercholesterolemia 01/26/2025 Primary hypertension 01/26/2025 Menopausal syndrome 01/26/2025 Chronic pansinusitis 01/26/2025 Pain of both breasts 01/13/2025 Assessment & Plan (01/13/2025 4:12 PM CDT): Suspect fibrocystic breast disease, encouraged patient to decrease caffeine intake. Follow-up with gynecology. Otalgia of both ears 01/13/2025 Assessment & Plan (01/13/2025 4:12 PM CDT): No acute infection. May use [id number] pain reliever of choice as needed for pain. Vitamin D deficiency 09/20/2024 Class 1 obesity due to exces s calories without serious comorbidity with body mass index (BMI) of 31.0 to 31.9 in adult 09/20/2024 Fatigue 09/16/2024 Positive MARKUS (antinuclear antibody) 09/16/2024 Coated tongue 09/16/2024 Non-seasonal allergic rhinitis 09/16/2024 Encounters Date Type Department Care Team Description 01/30/2025 Results Follow-Up [facility] [address] [place] [id number] Julissa Dejesus DO CBC with auto differential, Comprehensive metabolic panel, MARKUS ab ql w/rflx to MARKUS qn, Additional followed-up results: 11 01/26/2025 1:30 PM CDT Lab [facility] [address] [place] [id number] Annual physical exam; Screening for deficiency anemia; Pure hypercholesterolemia; Encounter for screening for other digestive system disorders; Positive MARKUS (antinuclear antibody); Vitamin D deficiency; Need for hepatitis B screening test; Need for hepatitis C screening test; Screening for blood or protein in urine; Screening for thyroid disorder; Encounter for screening examination for impaired glucose regulation and diabetes mellitus 01/26/2025 12:30 PM CDT Office Visit [facility] at [address] [phone] Julissa Dejesus, Annual physical exam (Primary Dx); Primary hypertension; Pure hypercholesterolemia; Gastroesophageal reflux disease without esophagitis; Chronic pansinusitis; Non-seasonal allergic rhinitis, unspecified trigger; Vitamin D deficiency; Menopausal syndrome; Positive MARKUS (antinuclear antibody); Screening for deficiency anemia; Encounter for screening for other digestive system disorders; Encounter for screening examination for impaired glucose regulation and diabetes mellitus; Screening for thyroid disorder; Screening for blood or protein in urine; Need for hepatitis C screening test; Need for hepatitis B screening test 01/17/2025 Results Follow-Up [facility] [address] [place] [phone] Julissa Dejesus DO SCAN - RADIOLOGY/IMAGING 01/05/2025 4:15 PM CDT Office Visit [facility] at [address] [place] [address] Julissa Dejesus, DO Pain of both breasts (Primary Dx); Otalgia of both ears from Last 3 Months Immunizations Immunization Administration Dates Next Due DTP 11/12/1979, 1,1969,11/18,1969 Influenza, Quadrivalent, Magnolia l Culture-based MDCK, Preservative Free, Antibiotic Free, Intramuscular 02/21/2022 Influenza, Quadrivalent, Spl it, Preservative Free, Intramuscular 03/11/2024,03/10/2023,02/07/2021 Influenza, Trivalent, Preser vative Free, Intramuscular 03/11/2024 MMR 09/22/1970,06/30/1970 OPV 11/12/1979, 1,1969,11/18,1969 Sars-CoV-2, Unspecified 06/30/2020 Tdap 12/29/2023 ZOSTER Recombinant 05/08/2022,02/22/2022 Surgical History Surgery Date Site/Laterality Comments HYSTERECTOMY 01/2008 ANTERIOR AND POSTERIOR VAGINAL REPAIR 07/27/2024 CYSTOCELE REPAIR 2024 RECTOCELE REPAIR 2024 PERINEORRHAPHY 11/19/2024 Medical History Medical History Date Comments GERD (gastroesophageal reflux disease) Hypertension Arthritis Hyperlipidemia Family History Medical History Relation Name Comments Hypertension Mother Relation Name Status Comments Mother Alive Social History Tobacco Use Types Packs/Day Years Used Date Smoking Tobacco: Never Smokeless Tobacco: Never Tobacco Cessation:Counseling Given: Not Answered Alcohol Use Standard Drinks/Week Comments Never 0 (1 standard drink = 0.6 oz pur e alcohol) PHQ-2 Answer Date Recorded PHQ-2 Total Score 0 01/26/2025 PHQ-9 Answer Date Recorded PHQ-9 Total Score 0 01/26/2025 AUDIT-C Answer Date Recorded Q1: How often do you have a drink containing alcohol? Never 01/26/2025 Q2: How many drinks containi ng alcohol do you have on a typical day when you are drinking? Patient does not drink Q3: How often do you have si x or more drinks on one occasion? Never 01/26/2025 Personal Safety Answer Date Recorded Have you ever been in or are you currently in a harmful physical or emotional relationship or is someone making you feel afraid or unsafe? Denies 06/02/2024 Comments No Sex and Gender Information Value Date Recorded Sex Assigned at Not on file Legal Sex Female 6:51 PM [employer] Gender Identity Not on file Sexual Orientation Not on file Obstetrics History Last Filed Vital Signs Vital Sign Reading Time Taken Comments Blood Pressure 114/72 01/26/2025 12:36 PM CDT Pulse 69 01/26/2025 12:36 PM CDT Temperature 37 C (98.6 F) 01/26/2025 12:36 PM CDT Respiratory Rate 14 01/26/2025 12:36 PM CDT Oxygen Saturation 98% 01/26/2025 12:36 PM CDT Inhaled Oxygen Concentration - - Weight 74.6 kg (164 lb 6.4 oz) 01/26/2025 12:36 PM CDT Height 154.9 cm (5' 1) 01/26/2025 12:36 PM CDT Body Mass Index 31.06 01/26/2025 12:36 PM CDT Plan of Treatment Health Maintenance Due Date Last Done Comments Covid-19 Vaccine ( season) 2025 04/27/2021, 10/20/2020, 06/30/2020, Additional history exists Influenza Vaccine (#1) 2025 , 03/11/2024, 03/10/2023, Additional history exists Breast Cancer Screening-Mammogram 08/11/2025 08/11/2024, 08/24/2018, 08/24/2018 Colon Cancer Screening-Colonoscopy 08/29/2025 08/29/2022 Depression Screening 01/26/2026 01/26/2025, 01/05/2025, 01/05/2025, Additional history exists Regular Well Visit/Exam 18-64 01/26/2026 01/26/2025 DTaP/Tdap/Td Vaccine (7 - Td or Tdap) 12/28/2033 12/29/2023, 11/12/1979, 01/12/1971, Additional history exists Zoster Vaccine Completed 05/08/2022, 02/22/2022 Colon Cancer Screening-CT Colonography Discontinued 08/29/2022 Colon Cancer Screening-DNA Stool Discontinued 08/29/2022 Colon Cancer Screening-FIT Discontinued 08/29/2022 Colon Cancer Screening-Sigmoidoscopy Discontinued 08/29/2022 Hepatitis B Screening Completed 01/26/2025 Hepatitis C Screening Completed 01/26/2025 Pneumococcal vaccine <65 Aged Out No longer eligible based on patient's age to complete this topic Procedures Procedure Name Priority Date/Time Associated Diagnosis Comments EGFR Routine 01/26/2025 1:38 PM CDT Annual physical exam Pure hypercholesterolemia Encounter for screening for other digestive system disorders DIFFERENTIAL AUTO Routine 01/26/2025 1:38 PM CDT Annual physical exam Screening for deficiency anemia HEMOGLOBIN A1C Routine 01/26/2025 1:38 PM CDT Annual physical exam Encounter for screening examination for impaired glucose regulation and diabetes mellitus LIPID PANEL Routine 01/26/2025 1:38 PM CDT Annual physical exam Pure hypercholesterolemia THYROID FUNCTION CASCADE Routine 01/26/2025 1:38 PM CDT Annual physical exam Screening for thyroid disorder VITAMIN D 25 HYDROXY Routine 01/26/2025 1:38 PM CDT Vitamin D deficiency MARKUS QUALITATIVE WITH REFLEX TO MARKUS QUANTITATIVE Routine 01/26/2025 1:38 PM CDT Positive MARKUS (antinuclear antibody) COMPREHENSIVE METABOLIC PANEL Routine 01/26/2025 1:38 PM CDT Annual physical exam Pure hypercholesterolemia Encounter for screening for other digestive system disorders CBC WITH AUTO DIFFERENTIAL Routine 01/26/2025 1:38 PM CDT Annual physical exam Screening for deficiency anemia HEPATITIS C ANTIBODY Routine 01/26/2025 1:38 PM CDT Need for hepatitis C screening test HEPATITIS B SURFACE ANTIBODY (IMMUNE STATUS) Routine 01/26/2025 1:38 PM CDT Need for hepatitis B screening test HEPATITIS B SURFACE ANTIGEN Routine 01/26/2025 1:38 PM CDT Need for hepatitis B screening test HEPATITIS B CORE ANTIBODY, TOTAL Routine 01/26/2025 1:38 PM CDT Need for hepatitis B screening test URINALYSIS AND REFLEX TO MICROSCOPIC AND CULTURE Routine 01/26/2025 1:31 PM CDT Screening for blood or protein in urine SCREENING MAMMOGRAM Schedule Routine, Read Routine (OP Routine) 08/11/2024 COLONOSCOPY Routine 08/29/2022 from Last 3 Months or Most Recently Relevant to Health Maintenance Results * MARKUS ab ql w/rflx to MARKUS qn (01/26/2025 1:38 PM CDT) MARKUS Negative Comment: Interpretive Data Normal range for MARKUS Qualitative Antibody = Negative. 1. MARKUS is performed using indirect immunofluorescence against HEp-2 cells 2. MARKUS titers are performed on all positive qualitative results. 3. A significantly positive MARKUS result is defined as a positive nuclear fluorescence at a titer of 1:80 or greater. 4. 15% of normal people above age 65 have significantly positive MARKUS results. 5% or less of normal people age 65 or under have significantly positive MARKUS results. Current interpretive data was last revised on 2020. Testing performed by: [facility], [address] [place] [address] Blood 01/26/2025 1:38 PM CDT 01/26/2025 5:34 PM CDT us Julissa Dejesus DO LAB BLOOD ORDERABLES Final Result [facility] [address] [facility] Department [place] [address] * eGFR (01/26/2025 1:38 PM CDT) eGFR >90 >=60 mL/min/1. 73 m2 Comment: Interpretive Data Reference Interval Normal >/= 90 mL/min/1.73m2 Mildly decreased* 60 - 89 mL/min/1.73m2 Mildly to moderately decreased 45 - 59 mL/min/1.73m2 Moderately to severely decreased 30 - 44 mL/min/1.73m2 Severely decreased 15 - 29 mL/min/1.73m2 Kidney Failure < 15 mL/min/1.73m2 *Relative to young adult level Estimated glomerular filtration rate is determined by the 2020 CKD-EPI equation recommended by the National Kidney Foundation (A Unifying Approach to GFR Estimation: Recommendations of the NKF-ASK Task Force on Reassessing the Inclusion of Race in Diagnosing Kidney Disease, JASN 202). The CKD-EPI equation should not be used for patients with unstable renal function and has not been validated in children and those over 70. Current interpretive data was last reviewed 2021. Blood 01/26/2025 1:38 PM CDT 01/26/2025 1:40 PM CDT us Julissa Dejesus DO LAB BLOOD ORDERABLES Final Result [facility] [address] [facility] Department [place] [address] * Differential, auto (01/26/2025 1:38 PM CDT) Pathologist [facility] Neutrophil abs 1.79 1.50 - 6.50 K/cumm Imm gran abs 0.01 0.00 - 0.10 K/cumm [facility] Lymphocyte abs 2.90 0.80 - 3.30 K/cumm [facility] Monocyte abs 0.34 0.20 - 0.80 K/cumm [facility] Eosinophil abs 0.13 0.00 - 0.50 K/cumm [facility] Basophil abs 0.03 0.00 - 0.10 K/cumm [facility] Neutrophil pct 34.4 % [facility] Comment: Interpretive Data Percent cell count reference ranges are not reported, since discordance with absolute values may lead to misinterpretation of CBC data. Current Interpretive Data was last revised on 2017. Imm gran pct 0.2 % [facility] Comment: Interpretive Data Percent cell count reference ranges are not reported, since discordance with absolute values may lead to misinterpretation of CBC data. Current Interpretive Data was last revised on 2017. Lymphocyte pct 55.8 % [facility] Comment: Interpretive Data Percent cell count reference ranges are not reported, since discordance with absolute values may lead to misinterpretation of CBC data. Current Interpretive Data was last revised on 2017. Monocyte pct 6.5 % [facility] Comment: Interpretive Data Percent cell count reference ranges are not reported, since discordance with absolute values may lead to misinterpretation of CBC data. Current Interpretive Data was last revised on 2017. Eosinophil pct 2.5 % [facility] Comment: Interpretive Data Percent cell count reference ranges are not reported, since discordance with absolute values may lead to misinterpretation of CBC data. Current Interpretive Data was last revised on 2017. Basophil pct 0.6 % [facility] Comment: Interpretive Data Percent cell count reference ranges are not reported, since discordance with absolute values may lead to misinterpretation of CBC data. Current Interpretive Data was last revised on 2017. Blood 01/26/2025 1:38 PM CDT 01/26/2025 1:41 PM CDT Julissa Dejesus DO LAB BLOOD ORDERABLES Final Result Performing Organization Address [facility]/ZIP Co de Phone Number [address] [place] [address] * Thyroid Function Angela (01/26/2025 1:38 PM CDT) TSH 0.98 0.30 - 4.20 mcIUnit/mL Blood 01/26/2025 1:38 PM CDT 01/26/2025 1:40 PM CDT Julissa Woodsonbárbara Dejesus LAB BLOOD ORDERABLES Final Result Performing Organization Address [facility] Co de Phone Number [address] [place] [address] * CBC with auto differential (01/26/2025 1:38 PM CDT) WBC 5.20 3.80 - 9.90 K/cumm Hgb 12.7 11.9 - 15.5 g/dL [facility] Hct 37.6 35.6 - 45.5 % [facility] Plt 306 150 - 400 K/cumm [facility] MPV 10.0 9.1 - 12.3 fL [facility] RBC 4.14 3.90 - 5.20 M/cumm [facility] MCV 90.8 81.3 - 96.4 fL [facility] MCH 30.7 27.1 - 33.3 pg [facility] MCHC 33.8 32.3 - 35.7 g/dL [facility] RDW CV 12.7 11.1 - 14.9 % [facility] RDW SD 42.5 35.7 - 48.1 fL [facility] NRBC abs 0.00 0.00 - 0.01 K/cumm [facility] Blood 01/26/2025 1:38 PM CDT 01/26/2025 1:41 PM CDT Juilssa Dejesus DO LAB BLOOD ORDERABLES Final Result [facility] [address] [facility] Department [place] [address] * Hepatitis C antibody Blood (01/26/2025 1:38 PM CDT) Hep C Ab Nonreactive Nonreactive Comment: Antibodies to HCV not detected. Does NOT exclude the possibility of recent exposure to HCV. Current interpretive data was last revised on 22 Interpretive Data Nonreactive: Antibodies to HCV not detected. Does NOT exclude the possibility of recent exposure to HCV. Equivocal: Equivocal for HCV antibodies. Supplemental molecular testing will be automatically performed to determine infection status in accordance with current CDC screening recommendations. Reactive: Positive for HCV antibodies. This may represent current or past HCV infection. Supplemental molecular testing will be automatically performed to determine current infection status in accordance with current CDC screening recommendations. Interpretive data was last revised on 2019. Blood 01/26/2025 1:38 PM CDT 01/26/2025 1:40 PM CDT us Julissa Woodson Dejesus DO LAB MICROBIOLOGY - GENERAL ORDERABLES Final Result Performing Organization Address [facility] Co de Phone Number [facility] [place] [address] * Hepatitis B core antibody, total Blood (01/26/2025 1:38 PM CDT) Pathologist [facility] Hep B core IgG/IgM Nonreactive Nonreactive Comment:Testing performed by : [facility], [address] [place]., [address] Blood 01/26/2025 1:38 PM CDT 01/26/2025 5:35 PM CDT Julissa Dejesus DO LAB MICROBIOLOGY - GENERAL ORDERABLES Final Result Performing Organization Address [facility] Co de Phone Number [address] [place] [address] * (ABNORMAL) Vitamin D 25 hydroxy (01/26/2025 1:38 PM CDT) Pathologist [facility] Vitamin D 25-OH 27.0(L) 30.0 - 80.0 ng/mL Blood 01/26/2025 1:38 PM CDT 01/26/2025 1:40 PM CDT Julissa Dejesus DO LAB BLOOD ORDERABLES Final Result Performing Organization Address [facility] Co de Phone Number [address] [place] [address] * Hepatitis B surface antibody (immune status) Blood (01/26/2025 1:38 PM CDT) Pathologist [facility] HBsAb (immune status) Reactive Comment: Interpretive Data Nonreactive: This result is consistent with a lack of immunity to Hepatitis B Virus when used in the setting of routine screening. Equivocal: The immune status of the individual should be further assessed, if appropriate, after consideration of clinical status, risk factors, and additional diagnostic information. Reactive: This result is consistent with immunity to Hepatitis B Virus when used in the setting of routine screening. Current interpretive data was last revised on 19. HBsAb (immune status) index 82.4 mIUnits/m L [facility] Blood 01/26/2025 1:38 PM CDT 01/26/2025 1:40 PM CDT Julissa Dejesus LAB MICROBIOLOGY - GENERAL ORDERABLES Final Result Performing Organization Address [facility] de Phone Number [address] [place] [address] * Hepatitis B Surface Antigen Blood (01/26/2025 1:38 PM CDT) Pathologist [facility] HepBsAg Nonreactive Nonreactive Blood 01/26/2025 1:38 PM CDT 01/26/2025 1:40 PM CDT Julissa Dejesus [facility] MICROBIOLOGY - GENERAL ORDERABLES Final Result Performing Organization Address [facility] Phone Number [address] [address] * (ABNORMAL) Hemoglobin A1c (01/26/2025 1:38 PM CDT) [facility] Hgb A1C 5.7(H) 4.0 - 5.6 % Estimated Average Glucose 117 mg/dL [facility] Comment: The ADA recommends reporting an estimated Average Glucose (eAG) with all Hemoglobin A1c results using the equation derived from a study of 507 normal and diabetic adults. Minority populations were underrepresented and children were not included. (Diabetes Care 31:1888-8351, 2008). The eAG is not equivalent to a fasting glucose. Blood 01/26/2025 1:38 PM CDT 01/26/2025 1:41 PM CDT Julissa Dejesus LAB BLOOD ORDERABLES Final Result Performing Organization Address [facility] de Phone Number [address] [place] [address] * (ABNORMAL) Lipid panel (01/26/2025 1:38 PM CDT) Cholesterol 209(H) 30 - 199 mg/dL Comment: Interpretive Data Ages < or = 19 years Acceptable: <170 mg/dL Borderline high: 170-199 mg/dL High: >or= 200 mg/dL Ages > or = 20 years Desirable: <200 mg/dL Borderline high: 200-239 mg/dL High: >or= 240 mg/dL Literature References: 1. Expert Panel on Integrated Guidelines for Cardiovascular Health and Risk Reduction in Children and Adolescents. Pediatrics 2011;128:S213 2. NCEP Expert Panel. Circulation 2004;110:227 Current Interpretive Data was last revised on 2018. Triglycerides 155(H) <=149 mg/dL [facility] Comment: Interpretive Data Ages < or = 9 years Acceptable: <75 mg/dL Borderline high: 75-99 mg/dL High: >or= 100 mg/dL Ages 10 to 20 years Acceptable: <90 mg/dL Borderline high: 90-129 mg/dL High: >or= 130 mg/dL Ages > or = 20 years Desirable: <150 mg/dL Borderline high: 150-199 mg/dL High: 200-499 mg/dL Very high: >or= 499 mg/dL Literature References: 1. Expert Panel on Integrated Guidelines for Cardiovascular Health and Risk Reduction in Children and Adolescents. Pediatrics 2011;128:S213 2. NCEP Expert Panel. Circulation 2004;110:227 Current Interpretive Data was last revised on 2018. HDL 44 >=40 mg/dL [facility] Comment: Interpretive Data Ages < or = 19 years Acceptable: >45 mg/dL Borderline low: 40-45 mg/dL Low: <40 mg/dL Ages > or = 20 years Desirable: >or= 60 mg/dL Low: <40 mg/dL Literature References: 1. Expert Panel on Integrated Guidelines for Cardiovascular Health and Risk Reduction in Children and Adolescents. Pediatrics 2011;128:S213 2. NCEP Expert Panel. Circulation 2004;110:227 Current Interpretive Data was last revised on 2018. LDL, calculated 137(H) <=129 mg/dL [facility] Comment: Interpretive Data Ages < or = 19 years Acceptable: <110 mg/dL Borderline high: 110-129 mg/dL High: >or= 130 mg/dL Ages > or = 20 years Optimal: <100 mg/dL Near optimal: 100-129 mg/dL Borderline high: 130-159 mg/dL High: >160 mg/dL Calculated using the Guillermo LDL-C estimating equation. This equation was implemented on 2024. Prior to this date LDL-C was estimated using the Friedewald equation. Literature References: 1. Expert Panel on Integrated Guidelines for Cardiovascular Health and Risk Reduction in Children and Adolescents. Pediatrics 2011;128:S213 2. NCEP Expert Panel. Circulation 2004;110:227 3. Guillermo Llamas et al. KRISTINE Cardiol. 2019October 07;5(5):540-548. doi: 10.1001/[email or web address] Current Interpretive Data was last revised on 2024. Non-HDL Cholesterol 165 mg/dL [facility] Comment: Interpretive Data Ages < or = 19 years Acceptable: <120 mg/dL Borderline high: 120-144 mg/dL High: >145 mg/dL Ages > or = 20 years When triglycerides are >200 mg/dL, Non-HDL cholesterol is a secondary target of therapy with treatment goals that are 30 mg/dL greater than the LDL cholesterol target. Literature References: 1. Expert Panel on Integrated Guidelines for Cardiovascular Health and Risk Reduction in Children and Adolescents. Pediatrics 2011;128:S213 2. NCEP Expert Panel. Circulation 2004;110:227 Current Interpretive Data was last revised on 2018. Chol/HDL ratio 5 [facility] Blood 01/26/2025 1:38 PM CDT 01/26/2025 1:40 PM CDT us Julissa Dejesus DO LAB BLOOD ORDERABLES Final Result [facility] [address] [facility] Department [place] [address] * Comprehensive metabolic panel (01/26/2025 1:38 PM CDT) Sodium 138 135 - 145 mmol/L Potassium, pl 4.0 3.3 - 4.9 mmol/L [facility] Chloride 105 97 - 110 mmol/L [facility] [facility] CO2 24 22 - 32 mmol/L [facility] Anion gap 9 2 - 15 mmol/L [facility] BUN 10 6 - 25 mg/dL [facility] Creatinine 0.76 0.60 - 1.10 mg/dL [facility] Glucose 92 70 - 199 mg/dL [facility] Comment: Interpretive Data Fasting glucose >/= 126 mg/dl is diagnostic for diabetes. Fasting is defined as no caloric intake for at least 8 hours. Fasting glucose between 100 mg/dl to 125 mg/dl is diagnostic of prediabetes. In a patient with classic symptoms of hyperglycemia or hyperglycemic crisis, a random glucose >/= 200 mg/dl is diagnostic for diabetes. In the absence of unequivocal hyperglycemia, results should be confirmed by repeat testing. The classification and Diagnosis of Diabetes Diabetes Care 2021; 46: S19-S40. Current interpretive data was last revised 2022. Calcium 9.5 8.5 - 10.3 mg/dL [facility] Bilirubin, total 0.4 0.1 - 1.2 mg/dL [facility] Protein, pl 7.2 6.5 - 8.5 g/dL [facility] Albumin 4.2 3.5 - 5.0 g/dL [facility] Alk phos 125 40 - 130 Units/L [facility] ALT 13 7 - 45 Units/L [facility] AST 22 10 - 45 Units/L [facility] Blood 01/26/2025 1:38 PM CDT 01/26/2025 1:40 PM CDT us Julissa Dejesus DO LAB BLOOD ORDERABLES Final Result [facility] [address] [facility] Department [place] [address] * Urinalysis reflex to microscopic and culture Urine, clean voided (01/26/2025 1:31 PM CDT) Color, ur Yellow Yellow Clarity, ur Clear Clear [facility] Specific gravity, ur 1.024 1.003 - 1.030 [facility] pH, urine 7.5 [facility] Comment: Interpretive Data U rine pH is affected by diet, medications, systemic acid-base disturbances, and renal tubular function. pH may affect urinary stone formation. For example, urine pH below 6.0 may help reduce the tendency for calcium phosphate stones and pH greater than 6.0 may reduce the tendency for uric acid stone formation. Source: [facility] Current Interpretive Data was last revised on 2017 Protein, ur ql Negative Negative [facility] Glucose, ur ql Negative Negative [facility] Ketones, ur Negative Negative [facility] Bilirubin, ur Negative Negative [facility] Blood, ur Negative Negative [facility] Urobilinogen, ur <2.0 <2.0 mg/dL [facility] Nitrite, ur Negative Negative [facility] Leukocyte esterase, ur Negative Negative [facility] UA reflex comment Reflex conditions for microscopic UA and culture not met. [facility] Urine, clean voided 01/26/2025 1:31 PM CDT 01/26/2025 1:42 PM CDT Narrative CERNER - 01/26/2025 2:04 PM CDT Urine Collection Method->Clean Catch Julissa Dejesus DO LAB MICROBIOLOGY - GENERAL ORDERABLES Final Result [facility] [address] [facility] Department [place] [address] * Screening Mammogram (08/11/2024) Anatomical Region Laterality Modality Breast N/A Mammography 08/11/2024 Historical Provider IMG MAMMO PROCEDURES Khalida l Result * (ABNORMAL) Colonoscopy (08/29/2022) Anatomical Region Laterality Modality Other Historical Provider ENDOSCOPY PROCEDURES Khalida l Result from Last 3 Months or Most Recently Relevant to Health Maintenance Insurance RANDOLPH LOPEZ O Care Teams Program Director/Morning Show Host Relationship Specialty Start Date End Date Julissa Dejesus DO [address] [place] [address] PCP - General Family Medicine 09/16/24 Home Quarles MD [address] [place] [address] Surgeon Otolaryngology 09/16/24 America Lundberg MD [address] [place] [address] Consulting Physician Obstetrics and Gynecology 01/26/25 Jenny Rodriguez MD [address] [facility] [address] [place] [address] Consulting Physician Gastroenterology 01/26/25
--- OUTSIDE RECORDS SUMMARY | 2025-04-04 16:59 | XMS_ITS | Encounter Summary ---
Author Organization [facility] Healthcare Address [address] [place] [address] Care Team Providers Care Fashion Adviser Name Role Phone Julissa Dejesus DO Primary Care Provider [phone] Home Quarles MD Unavailable [phone] America Lundberg MD Unavailable [phone] Jenny Rodriguez MD Unavailable [phone] Encounter Details Date Type Department Care Team (Late st Contact Info) Description 12/17/2024 Orders Only [facility] Health Information Management [address] [place] [id number] Julissa Dejesus DO [address] [place] [address] Social History Tobacco Use Types Packs/Day Years Used Date Smoking Tobacco: Never Smokeless Tobacco: Never AUDIT-C Answer Date Recorded Q1: How often do you have a drink containing alcohol? Never 09/16/2024 Q2: How many drinks containi ng alcohol do you have on a typical day when you are drinking? Patient does not drink Q3: How often do you have si x or more drinks on one occasion? Never 09/16/2024 PHQ-2 Answer Date Recorded PHQ-2 Total Score (If total score is 3 or more points, staff should administer the PHQ-9) 0 09/16/2024 Personal Safety Answer Date Recorded Have you ever been in or are you currently in a harmful physical or emotional relationship or is someone making you feel afraid or unsafe? Denies 06/02/2024 Comments No Sex and Gender Information Value Date Recorded Sex Assigned at Not on file Legal Sex Female 6:51 PM [employer] Gender Identity Not on file Sexual Orientation Not on file documented as of this encounter Plan of Treatment Not on file documented as of this encounter Procedures Procedure Name Priority Date/Time Associated Diagnosis Comments SCAN - RADIOLOGY/IMAGING 12/17/2024 documented in this encounter Results * SCAN - RADIOLOGY/IMAGING (12/17/2024) Anatomical Region Laterality Modality Other us Julissa Dejesus DO Final Resu lt documented in this encounter Visit Diagnoses Not on filedocumented in this encounter Care Teams Fashion Adviser Relationship Specialty Start Date End Date Julissa Dejesus DO [address] [place] [address] PCP - General Family Medicine 09/16/24 Home Quarles MD [address] [place] [address] Surgeon Otolaryngology 09/16/24 America Lundberg MD [address] [place] [address] Consulting Physician Obstetrics and Gynecology 01/26/25 Jenny Rodriguez MD [address] [facility] [address] [place] [address] Consulting Physician Gastroenterology 01/26/25 documented as of this encounter
== END 2025-04-04 15:28 | disposition home or self-care (01) ==
PROVIDERS: PCP Internal Medicine; Visit Provider Plastic Surgery
DX: M18.0 Bilateral primary osteoarthritis of first carpometacarpal joints (principal)
CPT/HCPCS: 73130